=== PATIENT | female | born 1935 | race Caucasian/White ===

== ENCOUNTER 2019-10-13 13:15 | Observation (INO) | payer MEDICARE, OTHER, SELFPAY ==
[2019-10-08 11:25] VITALS: BMI 28.3
[2019-10-08 12:27] LABS: Anion Gap 15.3 (5-19); Blood Urea Nitrogen 14 mg/dL (8-23); Calcium 9.7 mg/Dl (8.8-10.2); Carbon Dioxide 22 mmol/L (22-29); Chloride 103 mmol/L (98-107); Glucose 113 mg/dL (74-106); Potassium 4.3 mmol/L (3.5-5.1); Sodium 136 mmol/L (136-145)
[2019-10-08 12:54] LABS: Basophils % 0.6 %; Eosinophils # 0.2 10^3/uL (0.0-0.8); Eosinophils % 2.8 %; Hematocrit 42.7 % (37.0-47.0); Hemoglobin 13.8 g/dL (11.5-15.3); Lymphocytes # 1.4 10^3/uL (0.8-4.8); Lymphocytes % 26.2 %; Mean Corpuscular HGB Conc 32.3 g/dL (30.0-36.0); Mean Corpuscular Hemoglobin 29.6 pg (28.0-34.0); Mean Corpuscular Volume 91.4 fL (81-99); Mean Platelet Volume 11.5 fL (7.4-10.4); Monocytes # 0.9 10^3/uL (0.2-0.9); Monocytes % 17.1 %; Neutrophils # 2.8 10^3/uL (1.8-7.7); Neutrophils % 52.9 %; Nucleated Red Blood Cells % 0 %; Platelet Count 210 10^3/cmm (130-400); Red Blood Count 4.67 10^6/uL (4.1-5.3); Red Cell Distribution Width 14.8 % (12.1-15.1); White Blood Count 5.3 10^3/uL (4.0-10.0)
[2019-10-08 13:24] LABS: Urine Appearance Clear (CLEAR); Urine Color Yellow (Yellow)
[2019-10-08 13:25] LABS: Add Urine Microscopic? YES; Bilirubin Urine Neg (NEGATIVE); Blood Urine Trace (Negative); Glucose Urine UA Norm (Normal); Ketones Urine Negative (Negative); Leukocyte Esterase Urine Negative (Negative); Nitrate Urine Negative (Negative); Protein Urine Neg (Negative); Urobilinogen Urine Norm (Negative); pH Urine 6 (5-7)
[2019-10-08 13:27] LABS: Add Urine Culture? No; Bacteria Urine TRACE; RBC Urine 0-4 /hpf (0-2); Squamous Epithelial Cell Urine 0-4 (0-5); WBC Urine 0-4 /hpf (0-5)
[2019-10-13] VITALS (21 sets, daily range): BP systolic 99–152; BP diastolic 53–85; PULSE 73–94; RESP 12–18; TEMP 36.2–36.8; O2SAT 93–99
[2019-10-13] MEDS: phenazopyridine 100 mg Tablet 200 MG PO (08:45)
[2019-10-13] MEDS: sodium chloride 0.9% 1,000 ML 30 ML IV (08:45)
--- NOTE | 2019-10-13 09:01 | ANES.PREANES ---
Pre-Anesthetic Assessment Pre-Anesthetic Assessment: Height/Weight: Height 1.55 m Weight 68.039 kg Temp Pulse Resp BP Pulse Ox 97.1 F L 85 18 152/85 95 10/13/19 08:31 10/13/19 08:31 10/13/19 08:31 10/13/19 08:31 10/13/19 08:31 Preop Diagnosis: Incomplete uterovaginal prolapse, Urinary incontinence Proposed Procedure: Operation Date: 10/13/19 09:15 Proposed Procedures p Total Vaginal Hysterectomy(Not Applicable) - Jose Enrique Conde MD s Salpingo-Oophorectomy (Vaginal)(Bilateral) - Jose Enrique Conde MD s Anterior Repair(Not Applicable) - MD brayan Everett Posterior Repair(Not Applicable) - Jose Enrique Conde MD Familial anesthetic complications: Trouble waking up Was Beta Di taken within 24 hours: N/A Last intake: Intake Last Liquid Date 10/12/19 Last Liquid Time 23:00 Last Solid Date 10/12/19 Last Solid Time 20:00 Social: Social History: No alcohol and No tobacco Exam: Pre-Anes Outpt Exam: alert, oriented x 3, clear to auscultation bilaterally and regular rate & rhythm Additional Exam Findings (including area of procedure): afib Airway: Cervical ROM: WNL MP: 2 Dentition: False Pulmonary: Pulmonary: None reported Comments: Hx of bronchitis - not in a couple of years CV/HEM: CV/HEM: Afib, CHF and HTN : : None reported Hepatic: Hepatic: None reported GI: GI: GERD Metabolic: Metabolic: None reported Musc/skel: Musc/skel: Lower Back Pain Comments: multiple myeloma Neuropsych: Neuropsych: None reported Anesthetic Plan: ASA status: III Anesthesia: General Risk of > 500 ml blood loss (7ml/kg in children): No Meds/Allergies Current Medications: Current Medications Generic Name Dose Route Start Last Admin Trade Name Freq PRN Reason Stop Dose Admin Sodium Chloride 1,000 mls @ 30 ml s/hr 10/13/19 08:15 10/13/19 08:45 Sodium Chloride 0.9% IV 10/14/19 08:14 30 mls/hr .Q24H DINH Administration PFSH Anesthesia PFSH: Social History Smoking and tobacco status: never smoked Alcohol intake: never Additional social history: Well balanced diet Data Anesthesia CBC & Chem 7: 10/08/19 10:44 10/08/19 10:44 Cardiac Studies: No Data to Display
--- NOTE | 2019-10-13 10:43 | PM.HPUD ---
H&P update H&P Update: DATE OF SURGERY/PROCEDURE: 10/13/19 DATE H&P PERFORMED: 10/08/19 H&P UPDATE INFORMATION: H&P completed within last 30 days, No changes to prior documentation and H&P is in [facility] on date indicated PREOP DIAGNOSIS: Incomplete uterovaginal prolapse PLANNED PROCEDURE: Operation Date: 10/13/19 09:15 Proposed Procedures p Total Vaginal Hysterectomy(Not Applicable) - Jose Enrique Conde MD s Salpingo-Oophorectomy (Vaginal)(Bilateral) - Jose Enrique Conde MD s Anterior Repair(Not Applicable) - MD brayan Everett Posterior Repair(Not Applicable) - Jose Enrique Conde MD Full H&P Medications/Allergies: Current Medications: Current Medications Generic Name Dose Route Start Last Admin Trade Name Freq PRN Reason Stop Dose Admin Sodium Chloride 1,000 mls @ 30 ml s/hr 10/13/19 08:15 10/13/19 08:45 Sodium Chloride 0.9% IV 10/14/19 08:14 30 mls/hr .Q24H DINH Administration Perinent History: Medical/Surgical History: Medical History (Updated 10/11/19 @ 18:24 by Jose Enrique Conde MD) GERD (gastroesophageal reflux disease) (Acute) Heart disease (Acute) Hyperlipidemia (Acute) Hypertension (Acute) Multiple myeloma (Acute) Osteoporosis (Acute) Family History: Family History (Updated 10/11/19 @ 17:56 by Jose Enrique Conde MD) Mother Hypertension Hyperlipidemia Stroke Father Hypertension Sister Hypertension Diabetes Hyperlipidemia Unknown Heart disease Multiple family members Social History: Social History Smoking and tobacco status: never smoked Alcohol intake: never Additional social history: Well balanced diet
--- NOTE | 2019-10-13 11:25 | SUR.OPER ---
1128 family (Clementine) notified of start time and progress of surgery
[2019-10-13] MEDS: vasopressin 20 unit/mL INJ INJECTION (11:30)
[2019-10-13] MEDS: fentaNYL 50 mcg/mL INJ 2mL IVP ×2 (13:17→13:22)
--- NOTE | 2019-10-13 13:49 | PM.OP ---
Operative Report Date of procedure: 10/13/19 Preop Diagnosis: Incomplete uterovaginal prolapse Post-op diagnosis: other (Complete uterovaginal prolapse) Procedure Done: Colpocleisis, Suprapubic catheter insertion with cystoscopy Specimens removed/disposition: None Surgeon: Jose Enrique Conde Anesthesia: general Estimated blood loss (mL): 20 Complications: None Condition: stable Procedure: DATE OF SURGERY: 10/13/2019 DATE OF DICTATION: 10/13/2019 TIME OF DICTATION: 13: 50 PREOPERATIVE DIAGNOSIS: Incomplete uterovaginal prolapse POSTOPERATIVE DIAGNOSIS: Complete uterovaginal prolapse PROCEDURE: Colpocleisis, Suprapubic catheter insertion with cystoscopy SURGEON: Jose Enrique Conde M.D. ACETYLENE CYLINDER PACKING MIXER: None ANESTHESIA: General INDICATIONS: Patient is a 83-year-old white female 6, para 6 who is postmenopausal. She had initially presented to the office as a referral from Dr. Nix due to rectocele. She was being managed with pessary. On my evaluation she was found to have a second-degree uterine prolapse with second-degree high cystocele and second-degree rectocele noted at her evaluation in August 2017. She opted to continue with the pessary at the time and did well with that up until 06/2019 when she developed a vaginal ulceration. Pessary then had to be left out and she started having problems with retention and worsening prolapse was noted. At her most recent exam, she was found to have at least third degree uterine prolapse, high cystocele, rectocele, and probable enterocele. Different treatment options were discussed and she wished to proceed with a closure type procedure if possible. Due to difficulty with emptying her bladder and degree of prolapse, potential for urinary retention was present and decision was made to also place suprapubic catheter due to increased chances of going home with a catheter. PROCEDURE: Patient was taken to the operating room where general anesthesia was obtained. She was prepped and draped in usual sterile fashion dorsal supine position with legs in Emile style stirrups. Sequential compression boots had been placed prior to starting the case. Bernal catheter was inserted and exam under anesthesia was performed. She had fourth degree uterine prolapse noted with almost complete eversion of the vagina present. The tissue surrounding the cervix was marked and then the channels along the sides of the vagina were then marked. The anterior and posterior portions of the vagina were injected with dilute Pitressin solution. The anterior vaginal wall was then undermined and the skin removed up to approximately the urethrovesical junction. Posteriorly, the skin was undermined and the skin removed up to approximately two thirds of the length of the posterior vaginal wall. Using 2-0 Vicryl suture, interrupted stitches were placed at the remaining scan at the cervix creating a open pocket behind the closed skin edge. This was then carried along the sides with the skin being rolled creating a track along the sides of the vagina bilaterally. This allowed a passage for uterine secretions to drain. Pursestring stitch was then placed through the paravaginal tissue and the apex of the vagina tucked down as the suture was tied. Multiple stitches were placed in this fashion until the uterus and vagina were back into position. Care was taken not to incorporate the tracks along the side of the vagina. The perineum was then injected with dilute Pitressin solution. A wedge-shaped piece of skin was excised from the perineum. The remaining portion of the posterior vaginal wall was injected with dilute Pitressin solution. The skin was undermined and then opened in the midline and the skin dissected off of the remaining portion of the rectovaginal fascia. This was then further sewn to the tissue along the anterior wall until only approximately 1 cm depth of the vagina remained. The remaining portion of the posterior wall was then also plicated in the midline, further reducing caliber of the remaining portion of the vagina. Excess skin was then excised. The skin of the vagina was reapproximated in the midline using 3-0 Vicryl suture in a running locking fashion. The perineal body was further built up with interrupted stitches of 2-0 Vicryl suture. The superficial portion of the perineum was reapproximated using 3-0 Vicryl suture in a running fashion and the skin of the perineum reapproximated using 3-0 Vicryl suture in a subcuticular fashion. Bernal catheter was removed and cystoscopy performed. Both ureters were noted to be effluxing urine well. No bladder masses were noted. Significant trabeculations were noted within the bladder. The bladder was distended with approximately 500 mL of fluid. Proximal 1 cm above the pubic symphysis in the midline, skin incision was made with a knife and a trocar from a suprapubic catheter kit was passed through the suprapubic incision and directed into the anterior bladder. This was done under cystoscopic guidance. Catheter was passed through the trocar over a stylette and the trocar was then removed. The catheter was inflated and the stylette removed. The catheter was secured to the anterior abdominal wall. Bladder was then drained and Bernal catheter reinserted. Patient tolerated procedure well. Sponge needle and instrument counts were correct. ESTIMATED BLOOD LOSS: 20 mL INTRAVENOUS FLUIDS: See anesthesia record DRAINS: Bernal and suprapubic catheters SPECIMENS: None COMPLICATIONS: None FINDINGS: Complete uterovaginal prolapse POSTOPERATIVE STATUS: The patient was transferred to the recovery room in satisfactory condition.
--- NOTE | 2019-10-13 14:51 | PM.PACU ---
PACU note Post-Anesthesia Exam: awake and vital signs stable Disposition: back to floor
[2019-10-13] MEDS: acetaminophen 325 mg Tablet 650 MG PO (15:28)
[2019-10-13] MEDS: dextrose 5%-sod chloride 0.45% 1,000 ML 125 ML IV (18:13)
[2019-10-13] MEDS: HYDROcodone-acetaminophen 5-325 mg Tablet 1 TAB PO (18:19)
--- NOTE | 2019-10-13 21:04 | PC.NURSE ---
Patient was up to chair and started feeling nauseous and light headed. She had her daughter push the call light to help get her back to bed. The patient had originally planned on walking before going back to bed, but felt she would be unable to tonight. V/S were taken and within normal limits. She is now resting comfortably in bed and her nausea has subsided.
[2019-10-14] MEDS: dextrose 5%-sod chloride 0.45% 1,000 ML 125 ML IV (01:38)
[2019-10-14] MEDS: diphenhydrAMINE 50 mg/mL SDV 1mL 12.5 MG IVP (02:40)
[2019-10-14 04:19] LABS: Basophils % 0.2 %; Eosinophils % 0.6 %; Hematocrit 34.8 % (37.0-47.0); Hemoglobin 11.3 g/dL (11.5-15.3); Lymphocytes # 0.8 10^3/uL (0.8-4.8); Lymphocytes % 17.1 %; Mean Corpuscular HGB Conc 32.5 g/dL (30.0-36.0); Mean Corpuscular Volume 89.2 fL (81-99); Mean Platelet Volume 10.7 fL (7.4-10.4); Monocytes % 21.3 %; Neutrophils # 2.9 10^3/uL (1.8-7.7); Neutrophils % 60.6 %; Nucleated Red Blood Cells % 0 %; Platelet Count 197 10^3/cmm (130-400); Red Cell Distribution Width 14.9 % (12.1-15.1); White Blood Count 4.8 10^3/uL (4.0-10.0)
[2019-10-14 04:30] VITALS: BP 138/74; PULSE 69; RESP 15; TEMP 36.8; O2SAT 95
[2019-10-14] MEDS: HYDROcodone-acetaminophen 5-325 mg Tablet 1 TAB PO ×2 (07:08→15:38)
--- NOTE | 2019-10-14 08:23 | PM.PN ---
Subjective Subjective: Interval history: Denies complaints. Reports pain has been well controlled. Denies shortness of breath or chest pains. Denies lightheadedness or dizziness with ambulation. Reports tolerating clear liquids without nausea or vomiting. Reports passing flatus. Reports having only minimal spotting vaginally. Denies any leg pains. Vitals/I&O/Wt Last Vital Signs Temp 98.2 F 10/14/19 04:30 Pulse 69 10/14/19 04:30 Resp 15 10/14/19 04:30 BP 138/74 10/14/19 04:30 Pulse Ox 95 10/14/19 04:30 10/13/19 10/14/19 10/14/19 22:59 06:59 14:59 Intake Total 970.833 / 1020.833 656.25 / 1677.083 Output Total 875 / 1500 800 / 2300 Balance 95.833 / -479.167 -143.75 / -622.917 Physical Exam Const: COMMON NORMALS: no apparent distress, average body habitus, alert and well nourished GENERAL APPEARANCE: well developed ORIENTATION/CONSCIOUSNESS: Yes oriented to person, Yes oriented to place and Yes oriented to time Resp: COMMON NORMALS: normal respiratory effort and clear to auscultation bilaterally AUSCULTATION: clear to auscultation bilaterally Cardio: COMMON NORMALS: regular rate, regular rhythm, no gallops, no murmurs and no rub RATE: regular rate RHYTHM: regular rhythm GI: COMMON NORMALS: soft to palpation, non-tender, no hepatosplenomegaly and no masses AUSCULTATION: Yes normoactive bowel sounds PALPATION: Yes soft, Yes no hepatosplenomegaly and No hernia : EXTERNAL FEMALE EXAM: No hernia Neuro: SENSORIUM/ORIENTATION: Yes alert, Yes oriented to person, Yes oriented to place and Yes oriented to time Psych: COMMON NORMALS: affect normal MOOD & AFFECT: Yes euthymic mood Urinary Catheter Management^: Bernal: Cath Placed During This Visit: no Suprapubic: Cath Placed During This Visit: no A&P Assessment and plan (1) Complete uterovaginal prolapse: Postoperative day 1, status post vaginal colpocleisis Patient is doing well overall. Advance to regular diet. Increase activities. May shower. Discontinue Bernal catheter. Leave suprapubic catheter for now. Patient to start voiding trials this morning. Patient has required minimal pain medication at this time. Plan is for her to go home later on today. Decision as to whether she goes home with the suprapubic catheter will depend upon results of voiding trials. Discharge instructions were reviewed with her and her daughter. Status: Acute Code(s): N81.3 - Complete uterovaginal prolapse (2) Hypertension: Patient is being restarted on her usual home blood pressure medicines this morning. This is amlodipine 5 mg daily and losartan 25 mg daily. Status: Acute Qualifiers: Hypertension type: essential hypertension Qualified Code(s): I10 - Essential (primary) hypertension Code(s): I10 - Essential (primary) hypertension (3) GERD (gastroesophageal reflux disease): She is being continued on her home medication of omeprazole. Status: Acute Code(s): K21.9 - Gastro-esophageal reflux disease without esophagitis Attestations Medical Necessity Statement*: Patient will be going home today. Coding Level of Care Code Acute Adjunct English Instructor for [employer] Diagnoses Complete uterovaginal prolapse N81.3 Hypertension I10 Hypertension type: essential hypertension GERD (gastroesophageal reflux disease) K21.9
--- NOTE | 2019-10-14 08:23 | PC.NURSE ---
Patient had 100 output from butts, 300 output from suprapubic catheter.
[2019-10-14] MEDS: NON-FORMULARY MEDICATION (Fenofibrate Micronized 134 MG) 134 EACH PO (09:55)
[2019-10-14] MEDS: NON-FORMULARY MEDICATION (Losartan 100 MG) 100 EACH PO (09:56)
[2019-10-14 10:02] VITALS: BP 146/74; PULSE 73; RESP 16; TEMP 36.4; O2SAT 95
--- NOTE | 2019-10-14 10:50 | PC.NURSE ---
Post Void Residual Trial Patient voided 250. Suprapubic catheter unclamped at that time. 20 minutes later, suprapubic catheter emptied with 100 output and then camped again. Patient instructed to attempt to void again in 2 hours at approximately 1245 and notify nurse.
--- NOTE | 2019-10-14 12:55 | PC.NURSE ---
Catheter Output Patient reported attempting to void but noticed her suprapubic catheter was full of urine and she was unable to void. She notified this nurse and bag was emptied with 500 output. This nurse notified Dr. Conde and received order for additional voiding trial. Call with results.
--- NOTE | 2019-10-14 14:05 | PC.NURSE ---
Catheter Output After unclamping suprapubic catheter for 10 minutes, less than 15ml was measured in a specimen cup following patient voiding 500ml herself. Dr. Conde notified and order received to remove suprapubic catheter.
[2019-10-14 14:46] VITALS: BP 134/76; PULSE 78; RESP 15; TEMP 36.6; O2SAT 93
--- NOTE | 2019-10-14 15:09 | PM.DCS ---
Discharge Providers Date of Admission: 10/13/19 13:15 Date of Discharge: 10/29/19 Attending Provider at Admission: Jose Enrique Conde Attending Provider at Discharge: Jose Enrique Conde Primary Care Provider: Adriana Gramajo DO Diagnoses at Discharge Discharge Diagnosis (1) Complete uterovaginal prolapse: Status: Acute (2) Hypertension: Status: Acute Qualifiers: Hypertension type: essential hypertension Qualified Code(s): I10 - Essential (primary) hypertension (3) GERD (gastroesophageal reflux disease): Status: Acute Reason for Visit Reason for Visit: Reason For Visit: Uterovaginal prolapse N81.2, Urinary incontinence Hospital Course Hospital Course: Patient is an 83-year-old white female 6, para 6 who is postmenopausal. She had presented to the office as a referral from Dr. Nix due to a rectocele. She had been previously managed with a pessary. On my evaluation she was found to have a second-degree uterine prolapse with second-degree high cystocele and a second-degree rectocele noted at the evaluation in August 2017. She had opted to continue with a pessary which she did well with up until 06/2019 when she developed a vaginal ulceration. Since then she has had to have the pessary out trying to get the ulceration to heal. With the pessary out she has developed problems with worsening retention and worsening prolapse. Things have now progressed to at least third degree uterine prolapse with high cystocele and rectocele and probable enterocele. Treatment options were discussed with her and she decided to proceed to surgical treatment by way of a colpocleisis. Due to her degree of prolapse she was also to have a suprapubic catheter due to increased risk of urinary retention following surgery. Patient was brought to the hospital for same-day surgery and had a colpocleisis with suprapubic catheter insertion. She tolerated the surgery well. On postoperative day 1 she was doing well overall. Her pain has been well controlled on oral medications. She denied shortness of breath or chest pains. She denied lightheadedness or dizziness with ambulation. She was tolerating clear liquids without nausea or vomiting. She had started passing flatus. She had had minimal spotting vaginally. She was afebrile with stable vital signs. Her diet was advanced and her activities were increased. She tolerated a regular diet without difficulty later on in the day. Voiding trials were started. She had low post void residuals after adequate voided volumes. As a result suprapubic catheter was removed and then she was discharged home. She was to follow-up in the office at her scheduled to in 6-week appointments. Discharge Data Data Completed and Pending: Labs from last 24 hours 10/14/19 04:00 WBC 4.8 RBC 3.90 L Hgb 11.3 L Hct 34.8 L MCV 89.2 MCH 29.0 MCHC 32.5 RDW 14.9 Plt Count 197 MPV 10.7 H Neut % (Auto) 60.6 Lymph % (Auto) 17.1 Kings % (Auto) 21.3 Eos % (Auto) 0.6 Baso % (Auto) 0.2 Neut # (Auto) 2.9 Lymph # (Auto) 0.8 Kings # (Auto) 1.0 H Eos # (Auto) 0.0 Baso # (Auto) 0.0 Nucleated RBC % (a uto) 0 Nucleated RBCs # 0.0 Vitals: Last Vital Signs Temp 97.8 F 10/14/19 14:46 Pulse 78 10/14/19 14:46 Resp 15 10/14/19 14:46 BP 134/76 10/14/19 14:46 Pulse Ox 93 10/14/19 14:46 Discharge Plan Discharge Patient Disposition: Home, Self-Care Condition: Stable Prescriptions: New hydrocodone-acetaminophen 5-325 mg Tablet 1 tab PO Q4H PRN (Reason: Moderate Pain) Qty: 20 RF: 0 Continued amlodipine 5 mg tablet 5 mg PO DAILY RF: 0 [id number] 500-400-667 mg-mg-unit capsule 1 cap PO DAILY RF: 0 losartan 25 mg tablet 100 mg PO DAILY RF: 0 calcium carbonate 600 mg calcium (1,500 mg) tablet 600 mg PO DAILY RF: 0 ascorbic acid (vitamin C) 500 mg tablet extended release 500 mg PO DAILY RF: 0 zinc 50 mg tablet 50 mg PO DAILY RF: 0 aspirin 325 mg tablet 325 mg PO DAILY RF: 0 potassium gluconate 595 mg (99 mg) tablet 595 mg PO DAILY RF: 0 Revlimid 10 mg capsule 10 mg PO DAILY RF: 0 dexamethasone 4 mg tablet 20 mg PO .weekly RF: 0 cholecalciferol (vitamin D3) [Vitamin D3] 1,000 unit capsule 1,000 unit PO ONCE RF: 0 acetaminophen [Tylenol Extra Strength] 500 mg tablet 1,000 mg PO Q6H PRN (Reason: Cold Symptoms) RF: 0 furosemide 20 mg tablet 30 mg PO DAILY RF: 0 fluticasone propionate 50 mcg/actuation spray,suspension 1 spray INTRANASAL BID PRN (Reason: Allergy Symptoms) RF: 0 fenofibrate micronized 134 mg capsule 134 mg PO DAILY RF: 0 omeprazole magnesium 20 mg capsule,delayed release(DR/EC) 20 mg PO DAILY RF: 0 nitroglycerin [Nitrostat] 0.4 mg tablet, sublingual 0.4 mg SUBLINGUAL Q5M PRN (Reason: Chest Pain) RF: 0 Held estradiol [Estrace] 0.01 % (0.1 mg/gram) cream 0.5 gm VAGINAL .twice weekly RF: 0 Hold Instructions: Resume on 10/30/19. Do not restart until after your next appointment in the office Discharge Orders: Discharge Order (Routine); Ordered 10/14/19 Ordered By: Jose Enrique Conde Referrals: Jose Enrique Conde MD [Physician] - 10/29/19 9:45 am (Postoperative visit) Discharge Diet: Regular Discharge Activity: Limit activity as instructed Patient Instructions: OB Discharge Report Discharge Date/Time: 10/14/19 16:10 Discharge Attestations Time Spent in Discharge Care*: less than 30 min Quality Metrics Clinical Quality Measures During this hospital stay, did patient experience: None Coding Level of Care Code Acute Litigation Attorney Associate for [employer] Diagnoses Complete uterovaginal prolapse N81.3 Hypertension I10 Hypertension type: essential hypertension GERD (gastroesophageal reflux disease) K21.9
== END 2019-10-14 16:10 | disposition home or self-care (01) ==
LOC: OBGYN 13:26
PROVIDERS: Admitting Provider Obstetrics & Gynecology; Family Provider Family Medicine; PCP Family Medicine; Visit Provider Obstetrics & Gynecology
PROC: (CPT 57120; 2019-10-13 09:05)
PROC: (CPT 51102; 2019-10-13 09:05)
PROC: 0TJB8ZZ Inspection of Bladder, Via Natural or Artificial Opening Endoscopic (ICD-10-PCS; CPT 52000; 2019-10-13 09:05)
DX: N81.3 Complete uterovaginal prolapse (principal); N39.41 Urge incontinence; K21.9 Gastro-esophageal reflux disease without esophagitis; M81.0 Age-related osteoporosis without current pathological fracture; Z82.49 Family history of ischemic heart disease and other diseases of the circulatory system; Z83.3 Family history of diabetes mellitus; I48.91 Unspecified atrial fibrillation; I11.0 Hypertensive heart disease with heart failure; I50.9 Heart failure, unspecified
CPT/HCPCS: 51102; 57120; 12345; 36415; 80048; 81003; 85025; 96360; 96361; 96375; G0378; J0690; J1200; J2001; J2704; J3010; J3490; J7030; J7799

== ENCOUNTER 2020-08-24 11:02 | Outpatient (CLI) | payer MEDICARE, OTHER, SELFPAY ==
--- NOTE | 2020-08-24 11:17 | USCV_ITS ---
Childers Cristy Age: 84 Gender: F : 1935 Exam Date: 08/24/2020 11:34 Ordering Phys: Adriana Gramajo DO Technologist: Karen Silverman Exam Location: [facility] Indication: SWELLING HISTORY: Lower extremity swelling. PROCEDURES: Venous duplex imaging was performed in only the left lower extremity. The following venous structures were evaluated: common femoral vein, profunda vein, proximal portion of the greater saphenous vein, superficial femoral vein, and the popliteal vein. In addition, the posterior tibial and peroneal trunk were evaluated. Serial compression, augmentation maneuvers, and spectral Doppler flow evaluation were performed. FINDINGS: Acute occlusive deep vein thrombosis in the left common femoral vein extending through the popliteal vein and peroneal trunk with abnormal flow dynamics. CONCLUSIONS Acute left lower extremity deep venous thrombosis. Patient taken to the ED for evaluation. Dr. Aster Escudero DO (Electronically Signed) Final Date: 24 August 2020 12:13 S
== END 2020-08-24 11:03 | disposition home or self-care (01) ==
LOC: RAD 11:06
PROVIDERS: PCP Family Medicine; Visit Provider Family Medicine
DX: M79.605 Pain in left leg (principal); M79.89 Other specified soft tissue disorders; I82.402 Acute embolism and thrombosis of unspecified deep veins of left lower extremity
CPT/HCPCS: 93971

== ENCOUNTER 2020-08-24 11:54 | Emergency (ER) | payer MEDICARE, OTHER, SELFPAY ==
[2020-08-24 12:11] VITALS: BP 95/50; PULSE 90; RESP 20; TEMP 36.4; O2SAT 96; BMI 28.3
--- NOTE | 2020-08-24 14:06 | PC.NURSE ---
Pt in WR with family at side. No needs at this time
--- NOTE | 2020-08-24 14:25 | PC.NURSE ---
Pt placed in room 12
[2020-08-24 15:13] VITALS: BP 134/65
[2020-08-24] MEDS: enoxaparin 80 mg/0.8 mL Syringe 70 MG SUBCUT (15:23)
--- NOTE | 2020-08-24 15:31 | W.ED.EXTPRO ---
HPI - Extremity Problem General: Chief complaint: Extremity Problem,Nontraumatic Stated complaint: BLOOD CLOT Time Seen by Provider: 08/24/20 13:49 History of Present Illness: HPI Narrative: 84-year-old female comes in complaining of swelling and pain in her left lower leg for the last 3 days. She was seen by primary care and sent for a venous duplex. Venous duplex is positive for a DVT on the left side. Recently she has been immobilized more due to compression fractures in her back. Patient has a history of multiple myeloma as well. She has some baseline shortness of breath with exertion which has not changed. MD Complaint: extremity pain (Left lower leg) and extremity swelling Onset (ago): day(s) Pain Consistency: constant Location: left Quality: aching Radiation: none Relieving factors: nothing Exacerbating factors: nothing Associated symptoms: Deny arthralgias, chest pain, fever(s), myalgias, rash or short of breath Review of Systems Const: Denies: fever(s) ENMT: Denies: throat pain, ear or mastoid pain, nasal discharge or nasal congestion Card: Denies: chest pain Resp: Denies: dyspnea, productive cough or non-productive cough GI: Denies: abdominal pain, nausea, vomiting, hematemesis, coffee ground emesis, diarrhea, constipation, bloating, hematochezia or melena : Denies: flank pain, difficulty voiding, dysuria, urinary frequency or urinary urgency Skin/Breast: Denies: rash PFSH ED PFSH: Medical History GERD (gastroesophageal reflux disease) Heart disease Hyperlipidemia Hypertension Multiple myeloma Osteoporosis Surgical History History of vaginal surgery (10/13/19) Colpocleisis with uterus in place. Performed by Dr. Conde at [facility] [place]. S/P tonsillectomy and adenoidectomy Performed in [place], [place] S/P tubal ligation Performed at [facility] and [place], [place] Family History Mother Hypertension Hyperlipidemia Stroke Father Hypertension Sister Hypertension Diabetes Hyperlipidemia Unknown Heart disease Multiple family members Social History (Reviewed 11/25/20 @ 16:30 by JOHANA Fuentes Smoking and tobacco status: never smoked Alcohol intake: never Additional social history: Well balanced diet Physical Exam Const: COMMON NORMALS: no acute distress GENERAL APPEARANCE: cooperative and comfortable ORIENTATION/CONSCIOUSNESS: Yes awake, Yes oriented to person, Yes oriented to place and Yes oriented to time HENMT: COMMON NORMALS: normocephalic, atraumatic and hearing grossly normal bilaterally HEAD & SCALP: normocephalic and atraumatic Eye: COMMON NORMALS: Equal, round and reactive pupils present, EOMs intact bilaterally, conjunctivae normal and no scleral icterus CONJUNCTIVA: Yes conjunctivae normal PUPIL: Yes Equal, round and reactive pupils present Neck/C-Spine: COMMON NORMALS: full ROM, no lymphadenopathy, supple and no JVD Lymph: LYMPHATIC: no lymphadenopathy noted and no lymphedema noted Resp: COMMON NORMALS: normal respiratory effort, No retractions, No use of accessory muscles and clear to auscultation bilaterally AUSCULTATION: clear to auscultation bilaterally Cardio: COMMON NORMALS: no JVD, regular rate, regular rhythm and No murmurs present (Cardio) RATE: regular rate RHYTHM: regular rhythm GI: COMMON NORMALS: Soft to palpation and No hepatosplenomegaly present AUSCULTATION: Yes normoactive bowel sounds PALPATION: Yes Soft to palpation, No Tenderness to palpation present (GI), No Guarding due to palpation present (GI) and Yes No hepatosplenomegaly present Extremity: NARRATIVE EXTREMITY EXAM: 2+ edema left lower extremity Neuro: SENSORIUM/ORIENTATION: Yes oriented to person, Yes oriented to place and Yes oriented to time Skin: COMMON NORMALS: no rashes or lesions noted GENERAL SKIN EXAM: no rashes or lesions noted Course Vital Signs: Vital signs: Vital Signs Temperature 97.5 F L 08/24/20 12:11 Pulse Rate 67 08/24/20 16:12 Respiratory Rate 16 08/24/20 16:12 Blood Pressure 132/35 08/24/20 16:12 Pulse Oximetry 94 08/24/20 16:12 MDM - Extremity (Nontraumatic) MDM Narrative: Medical decision making narrative: Initially were concerned based on Eliquis however she is already been started on Xarelto. She was given a dose of Lovenox. Discussed with her the finding of the DVT we will have her follow-up with oncology and primary care return if she has chest pain or increased shortness of breath. Discharge Plan Discharge Patient Disposition: Home Clinical Impression: Deep vein thrombosis of lower extremity Condition: Stable Prescriptions: No Action amlodipine 5 mg tablet 5 mg PO DAILY RF: 0 calcium carbonate 600 mg calcium (1,500 mg) tablet 600 mg PO DAILY RF: 0 zinc 50 mg tablet 50 mg PO DAILY RF: 0 aspirin 325 mg tablet 325 mg PO DAILY RF: 0 potassium gluconate 595 mg (99 mg) tablet 595 mg PO DAILY RF: 0 Revlimid 10 mg capsule 10 mg PO .DAILY DIRECTED RF: 0 dexamethasone 4 mg tablet 20 mg PO .weekly RF: 0 cholecalciferol (vitamin D3) [Vitamin D3] 1,000 unit capsule 1,000 unit PO DAILY RF: 0 acetaminophen [Tylenol Extra Strength] 500 mg tablet 1,000 mg PO PRN RF: 0 furosemide 20 mg tablet 20 mg PO DAILY PRN (Reason: Edema) RF: 0 fluticasone propionate 50 mcg/actuation spray,suspension 1 spray INTRANASAL BID PRN (Reason: Allergy Symptoms) RF: 0 fenofibrate micronized 134 mg capsule 134 mg PO DAILY RF: 0 omeprazole magnesium 20 mg capsule,delayed release(DR/EC) 20 mg PO DAILY RF: 0 nitroglycerin [Nitrostat] 0.4 mg tablet, sublingual 0.4 mg SUBLINGUAL Q5M PRN (Reason: Chest Pain) RF: 0 Vitamin C 500 mg Tablet 500 mg PO DAILY RF: 0 Miralax 17 gram/dose Powder 17 g PO DAILY PRN (Reason: Constipation) RF: 0 losartan 100 mg tablet 100 mg PO DAILY RF: 0 Xarelto 15 mg Tablet 15 mg PO BID RF: 0 Percocet 10-325 mg Tablet 1 tab PO Q4H MDD 6 TABS PRN (Reason: Pain) RF: 0 calcitonin (salmon) 200 unit/actuation spray,non-aerosol See Rx Instructions .ROUTE .COMPLEX RF: 0 Linzess 72 mcg capsule 72 mcg PO QAM RF: 0 Discharge Orders: Discharge Order (Routine); Ordered 08/24/20 Ordered By: Kana Werner Referrals: Adriana Gramajo DO [Primary Care Provider] - Discharge Diet: Usual diet Discharge Activity: Limit activity as instructed Activity Restrictions/Additional Instructions: Aloe up with your primary care doctor and your oncologist as previously scheduled. Coding Level of Care Code ED [employer] Helper for Cheyenne Norwood
[2020-08-24 16:12] VITALS: BP 132/35; PULSE 67; RESP 16; O2SAT 94
== END 2020-08-24 16:17 | disposition home or self-care (01) ==
PROVIDERS: Emergency Provider Family Medicine; PCP Family Medicine
DX: I82.402 Acute embolism and thrombosis of unspecified deep veins of left lower extremity (principal); Z79.82 Long term (current) use of aspirin; I10 Essential (primary) hypertension; E78.5 Hyperlipidemia, unspecified; M79.89 Other specified soft tissue disorders; M79.605 Pain in left leg
CPT/HCPCS: 12345; 93971; 96372; 99281; 99283; J1650

== ENCOUNTER 2021-06-12 10:51 | Outpatient (CLI) | payer MEDICARE, OTHER, SELFPAY ==
--- NOTE | 2021-06-12 11:02 | MM_ITS ---
WS: [id number] BILATERAL SCREENING DIGITAL MAMMOGRAM WITH CAD HISTORY: SCREENING COMPARISON: 06/18/2019 and 06/03/2018 Bilateral CC and MLO views submitted. Computer aided detection analyzed. Breast composition: There are scattered areas of fibroglandular density. No suspicious masses, microc alcifications or architectural distortion. Extensive bilateral breast arterial calcifications. MM/[place] [id number] IMPRESSION: BI-RADS: 2-Benign FOLLOW UP: 1 Year Follow-up
== END 2021-06-12 10:52 | disposition home or self-care (01) ==
PROVIDERS: PCP Family Medicine; Visit Provider Family Medicine
DX: Z12.31 Encounter for screening mammogram for malignant neoplasm of breast (principal)
CPT/HCPCS: 77067

== ENCOUNTER 2023-03-11 20:20 | Emergency (ER) | payer MEDICARE, OTHER, SELFPAY ==
[2023-03-11 20:21] VITALS: BMI 20.7
[2023-03-11 20:23] VITALS: BP 100/78; PULSE 109; RESP 16; TEMP 36.7; O2SAT 97
--- NOTE | 2023-03-11 20:26 | CTR_ITS ---
PROCEDURE INFORMATION: Exam: CT Head Without Contrast Exam date and time: 03/11/2023 8:36 PM Age: 87 years old Clinical indication: Injury or trauma; Fall; Blunt trauma (contusions or hematomas) TECHNIQUE: Imaging protocol: Computed tomography of the head without contrast. Radiation optimization: All CT scans at this facility use at least one of these dose optimization techniques: automated exposure control; mA and/or kV adjustment per patient size (includes targeted exams where dose is matched to clinical indication); or iterative reconstruction. REPORTING DATA: Count of CT and Cardiac NM exams in prior 12 months: This patient has received 0 known CTs and 0 known cardiac nuclear medicine studies in the 12 months prior to the current study. COMPARISON: No relevant prior studies available. RADIATION DOSE METRICS: Total DLP (mGy-cm): 954.08 FINDINGS: Brain: No acute intra- or extra axial fluid collections are identified. The basal cisterns are patent. No mass effect or midline shift is seen. The argueta-white matter differentiation is normal. Periventricular hypoattenuation are nonspecific but likely the sequela of chronic small vessel ischemic disease. Cerebral ventricles: The ventricles are of normal size, shape, and morphology. Paranasal sinuses: There is mild paranasal sinus disease. No air-fluid levels. Mastoid air cells: The mastoid air cells appear grossly clear. Orbital cavities: The patient is status post cataract extraction.. Bones/joints: No acute calvarial fracture is identified. Soft tissues: There is mild right periorbital soft tissue swelling/hematoma extending along the supra orbital forehead/frontal scalp. No underlying osseous fractures. Vasculature: There are atherosclerotic calcifications of the carotid siphons and the V4 segments of the vertebral arteries. CT/CT head wo con* [id number] IMPRESSION: 1. No evidence of acute intracranial hemorrhage, significant mass effect, or midline shift. 2. Right frontal/forehead soft tissue swelling/hematoma and right periorbital soft tissue swelling as outlined.
--- NOTE | 2023-03-11 20:32 | ED_ITS ---
HPI - Fall General: Chief Complaint: Fall Stated Complaint: fall Time Seen by Provider: 03/11/23 20:22 Source: patient and EMS Mode of arrival: EMS Limitations: no limitations History of Present Illness: 87-year-old female states she was walking her walker tripped and fell into the wall she did hit her head this happened this morning she is on Eliquis she has a hematoma to right forehead she also skin tears to right arm she has a mild headache she denies any pain elsewhere denies any chest or abdominal or hip pain. Associated symptoms-after fall: Reports headache(s); Denies abdominal pain, chest pain or neck pain Review of Systems Const: Denies: fever(s), chills, body aches or change in appetite ENMT: Denies: throat pain or dental pain Card: Denies: chest pain Resp: Denies: dyspnea GI: Denies: abdominal pain, nausea, vomiting or diarrhea Musc: Denies: neck pain or back pain Skin/Breast: Denies: rash Neuro: Reports: headache(s) PFSH ED PFSH: Medical History GERD (gastroesophageal reflux disease) Heart disease Hyperlipidemia Hypertension Multiple myeloma Osteoporosis Surgical History History of vaginal surgery (10/13/19) Colpocleisis with uterus in place. Performed by Dr. Conde at [facility] [place]. S/P tonsillectomy and adenoidectomy Performed in [place], [place] S/P tubal ligation Performed at [facility] and [place], [place] Family History Mother Hypertension Hyperlipidemia Stroke Father Hypertension Sister Hypertension Diabetes Hyperlipidemia Unknown Heart disease Multiple family members Social History Smoking and tobacco status: never smoked Alcohol intake: never Substance/Drug Use: never Additional social history: Well balanced diet Physical Exam Const: COMMON NORMALS: no acute distress, patient oriented x3 and healthy appearing HENMT: COMMON NORMALS: normocephalic HEAD & SCALP: normocephalic OTHER: hematoma to right forehead Eye: COMMON NORMALS: Equal, round and reactive pupils present and EOMs intact bilaterally PUPIL: Yes Equal, round and reactive pupils present Neck/C-Spine: COMMON NORMALS: full ROM and supple CERVICAL SPINE: No Cervical spine tenderness Chest: COMMONS NORMALS: normal inspection of the chest and normal palpation of entire chest wall Resp: COMMON NORMALS: normal respiratory effort, No retractions, No use of accessory muscles and clear to auscultation bilaterally AUSCULTATION: clear to auscultation bilaterally Cardio: COMMON NORMALS: regular rate, regular rhythm and No murmurs present (Cardio) RATE: regular rate RHYTHM: regular rhythm GI: COMMON NORMALS: Normal to inspection, nondistended, normoactive bowel sounds present, Soft to palpation, non-tender and no masses PALPATION: Yes Soft to palpation Back/Pelvis: COMMON NORMALS: thoracic and lumbar spine normal to inspection and no thoracic nor lumbar tenderness Extremity: COMMON NORMALS: full ROM Neuro: COMMON NORMALS: patient oriented x3, moves all extremities and no focal motor deficits Psych: COMMON NORMALS: mental status grossly normal, Normal thought process present and cooperative THOUGHT PROCESS: Normal thought process present Skin: NARRATIVE SKIN EXAM: sking tears to right forearm Course Vital Signs: Vital signs: Vital Signs Temperature 98.1 F 03/11/23 20:23 Pulse Rate 109 H 03/11/23 20:23 Respiratory Rate 16 03/11/23 20:23 Blood Pressure 100/78 03/11/23 20:23 Pulse Oximetry 97 03/11/23 20:23 Oxygen Delivery Me thod Room Air 03/11/23 20:23 MDM - Fall Medical Decision Making Patient presents here with closed head injury after a fall CT of her head is normal she does have skin tears to right arm that are not repairable we will put dressings over x-ray shows no fracture she is stable for discharge. Medical Records I reviewed the patient's medical records. Lab Data I reviewed the patient's lab results. Radiology Impressions Head CT 03/11/23 20:26 IMPRESSION: 1. No evidence of acute intracranial hemorrhage, significant mass effect, or midline shift. 2. Right frontal/forehead soft tissue swelling/hematoma and right periorbital soft tissue swelling as outlined. Forearm X-Ray 03/11/23 20:34 IMPRESSION: No evidence of acute fractures or traumatic dislocation. Discharge Plan Discharge Patient Disposition: Home Clinical Impression: CHI (closed head injury), Skin tear, Fall Condition: Stable Prescriptions: No Action amlodipine 5 mg tablet 5 mg PO DAILY calcium carbonate 600 mg calcium (1,500 mg) tablet 600 mg PO DAILY zinc 50 mg tablet 50 mg PO DAILY aspirin 325 mg tablet 325 mg PO DAILY potassium gluconate 595 mg (99 mg) tablet 595 mg PO DAILY Revlimid 10 mg capsule 10 mg PO .DAILY DIRECTED Rx Instructions: Days 1-21 each month-PT STATES SHE IS ON THE PART WHERE SHE IS NOT SUPPOSE TO BE TAKING dexamethasone 4 mg tablet 20 mg PO .weekly Rx Instructions: PT STATES SHE TAKES ON SATURDAY-AND TAKES ON - EACH MONTH-PT STATES SHE IS ON THE PART WHERE SHE IS NOT TAKING cholecalciferol (vitamin D3) [Vitamin D3] 1,000 unit capsule 1,000 unit PO DAILY acetaminophen [Tylenol Extra Strength] 500 mg tablet 1,000 mg PO PRN furosemide 20 mg tablet 20 mg PO DAILY PRN (Reason: Edema) fluticasone propionate 50 mcg/actuation spray,suspension 1 spray INTRANASAL BID PRN (Reason: Allergy Symptoms) fenofibrate micronized 134 mg capsule 134 mg PO DAILY Rx Instructions: PT STATES SHE TAKES THIS MEDICATION omeprazole magnesium 20 mg capsule,delayed release(DR/EC) 20 mg PO DAILY nitroglycerin [Nitrostat] 0.4 mg tablet, sublingual 0.4 mg SUBLINGUAL Q5M PRN (Reason: Chest Pain) Vitamin C 500 mg Tablet 500 mg PO DAILY Miralax 17 gram/dose Powder 17 g PO DAILY PRN (Reason: Constipation) losartan 100 mg tablet 100 mg PO DAILY Xarelto 15 mg Tablet 15 mg PO BID Rx Instructions: PER FANNY AT OFFICE STATES THE PT TAKES BID Percocet 10-325 mg Tablet 1 tab PO Q4H MDD 6 TABS PRN (Reason: Pain) calcitonin (salmon) 200 unit/actuation spray,non-aerosol See Rx Instructions .ROUTE .COMPLEX Rx Instructions: ONE SPRAY IN ONE NOSTRIL EVERYDAY ALTERNATING NOSTRILS PT STATES SHE TAKES WHEN HER DAUGHTER MAKES HER Linzess 72 mcg capsule 72 mcg PO QAM Rx Instructions: PT STATES SHE DOESNT TAKE EVERYDAY Discharge Orders: Discharge ED (Routine); Ordered 03/11/23 Ordered By: Dariel Calle Referrals: Adriana Gramajo DO [Primary Care Provider] - 1-3 days Discharge Diet: Advance as tolerated Discharge Activity: Resume usual activity Patient Instructions: Head Injury (ED) Coding Level of Care Code ED Resource Room Special Education Teacher for Cheyenne Norwood
--- NOTE | 2023-03-11 20:34 | XRR_ITS ---
PROCEDURE INFORMATION: Exam: XR Right Forearm Exam date and time: 03/11/2023 8:39 PM Age: 87 years old Clinical indication: Injury or trauma; Fall; Blunt trauma (contusions or hematomas); Arm, upper; TECHNIQUE: Imaging protocol: Radiologic exam of the right forearm. Views: 2 views. COMPARISON: No relevant prior studies available. FINDINGS: Bones/joints: Suggestion of mild decreased bone density. The osseous structures appear grossly intact. No evidence of acute fractures. No evidence of joint dislocation.. Soft tissues: Suspected minimal soft tissue swelling however no large focal soft tissue swelling is identified. XR/XR forearm RT 2V [id number] IMPRESSION: No evidence of acute fractures or traumatic dislocation.
[2023-03-11 21:56] VITALS: PULSE 90; RESP 16; O2SAT 98
== END 2023-03-11 21:58 | disposition home or self-care (01) ==
PROVIDERS: Emergency Provider Emergency Medicine; PCP Family Medicine
DX: S09.8XXA Other specified injuries of head, initial encounter (principal); S41.111A Laceration without foreign body of right upper arm, initial encounter; Z79.82 Long term (current) use of aspirin; E78.5 Hyperlipidemia, unspecified; I10 Essential (primary) hypertension; Z79.01 Long term (current) use of anticoagulants; W01.198A Fall on same level from slipping, tripping and stumbling with subsequent striking against other object, initial encounter
CPT/HCPCS: 70450; 73090; 99284

== ENCOUNTER 2023-11-28 10:10 | Inpatient (IN) | payer MEDICARE, OTHER, SELFPAY ==
[2023-11-28] VITALS (99 sets, daily range): BP systolic 103–177; BP diastolic 55–93; PULSE 70–126; RESP 9–35; TEMP 36.6–37.3; O2SAT 77–100; BMI 20.7
--- NOTE | 2023-11-28 10:21 | CT_ITS ---
WS: [id number] CT HEAD NONCONTRAST HISTORY: ams TECHNIQUE: Contiguous axial imaging performed through the brain in 2.5 mm imaging. Bone and soft tiss ue windows. Sagittal and coronal reformats reviewed. All CT scans at [facility] use at least one of these dose optimization techniques: automated exposure control; mA and/or kV adjustment per pa tient size (includes targeted exams where dose is matched to clinical indication); or iterative recon struction. DLP: 1994.98 mGy.cm COMPARISON: 03/11/2023 No acute intracranial hemorrhage, midline shift or mass effect. Mild bilateral cerebral and cerebellar atrophy with mild small vessel ischemic disease. No prior infa rct. Ventricles: Normal size with no hydrocephalus. No intra displacement of the cerebellar tonsils. Paranasal sinuses: Tiny air-fluid level in the LEFT maxillary sinus. Mastoid air cells: Well pneumatized. Calvarium and scalp: Skull is intact with no soft tissue edema or swelling. IMPRESSION: 1. No acute intracranial hemorrhage or edema. 2. Mild cerebral and cerebellar atrophy and small vessel ischemic disease. 3. No prior infarct.
--- NOTE | 2023-11-28 10:21 | XR_ITS ---
WS: [id number] Exam: XR chest 1V portable [id number] Date/Time of Exam: 11/28/2023 10:24 AM Reason For Exam: ams No previous exams. The lungs are fully inflated and clear. Normal cardiomediastinal silhouette. No pleural effusions. He aling posterior RIGHT sixth rib fracture. Old posterior RIGHT eighth rib fracture. EKG leads overlie the chest. L1 vertebroplasty. IMPRESSION: 1. No acute cardiopulmonary finding. 2. Healing RIGHT posterior sixth rib fracture. Old RIGHT eighth rib fracture.
--- NOTE | 2023-11-28 10:26 | W.ED.AMS ---
HPI - Altered Mental Status General: Chief Complaint: Altered Mental Status Stated Complaint: ams Time Seen by Provider: 11/28/23 10:16 Source: EMS Mode of arrival: EMS Limitations: altered mental status History of Present Illness: 87-year-old female who is here from home for altered mental status. Per EMS family states she been very lethargic throughout the day last night went to bed at 8 PM when she woke up she is not really responding. Here she responds to verbal stimuli but will not follow any commands will not speak to me at this time. Patient is very frail she has had no known fever. Not able to get any history from patient Review of Systems General: Reports: ROS unobtainable due to mental status PFS ED PFSH: Medical History GERD (gastroesophageal reflux disease) Heart disease Hyperlipidemia Hypertension Multiple myeloma Osteoporosis Surgical History History of vaginal surgery (10/13/19) Colpocleisis with uterus in place. Performed by Dr. Conde at [facility] [place]. S/P tonsillectomy and adenoidectomy Performed in [place], [place] S/P tubal ligation Performed at [facility] and [place], [place] Family History Mother Hypertension Hyperlipidemia Stroke Father Hypertension Sister Hypertension Diabetes Hyperlipidemia Unknown Heart disease Multiple family members Social History Smoking and tobacco/nicotine status: never used tobacco/nicotine Alcohol intake: never Substance/Drug Use: never Additional social history: Well balanced diet Physical Exam Const: COMMON NORMALS: negative for patient oriented x3 and negative for alert GENERAL APPEARANCE: ill appearing and frail appearing HENMT: COMMON NORMALS: normocephalic and atraumatic HEAD & SCALP: normocephalic and atraumatic Eye: COMMON NORMALS: conjunctivae normal CONJUNCTIVA: Yes conjunctivae normal Neck/C-Spine: COMMON NORMALS: supple Chest: COMMONS NORMALS: normal inspection of the chest Resp: COMMON NORMALS: normal respiratory effort and clear to auscultation bilaterally AUSCULTATION: clear to auscultation bilaterally Cardio: COMMON NORMALS: regular rate and regular rhythm RATE: regular rate RHYTHM: regular rhythm GI: COMMON NORMALS: Normal to inspection, nondistended, normoactive bowel sounds present, Soft to palpation, non-tender and No hepatosplenomegaly present PALPATION: Yes Soft to palpation and Yes No hepatosplenomegaly present Extremity: COMMON NORMALS: normal to inspection Neuro: COMMON NORMALS: negative for patient oriented x3 SENSORIUM/ORIENTATION: No alert Psych: COMMON NORMALS: negative for mental status grossly normal Course Vital Signs: Vital signs: Vital Signs Temperature 98 F 11/28/23 10:15 Pulse Rate 95 11/28/23 13:27 Respiratory Rate 23 H 11/28/23 13:27 Blood Pressure 156/82 11/28/23 11:12 Pulse Oximetry 97 11/28/23 13:27 Oxygen Delivery Me thod Room Air 11/28/23 11:12 MDM - Altered Mental Status Medical Decision Making Patient present here with altered mental status no sign of infection here head CT is normal as well she does have an elevated lactic she has some dehydration as well did get blood cultures we will start antibiotics at this time spoke to hospitalist and will admit. Medical Records I reviewed the patient's medical records. Lab Data I reviewed the patient's lab results. 11/28/23 10:56 11/28/23 10:56 Laboratory Results WBC 9.83 10^3/uL (3.29-11.43) 11/28/23 10:56 RBC 5.10 10^6/uL (3.85-5.65) 11/28/23 10:56 Hgb 13.90 g/dL (11.27-16.99) 11/28/23 10:56 Hct 44.4 % (36-47) 11/28/23 10:56 MCV 87.1 fl (85-98) 11/28/23 10:56 MCH 27.3 pg (27-33) 11/28/23 10:56 MCHC 31.3 g/dL (30-55) 11/28/23 10:56 RDW 15.0 % (12.1-15.1) 11/28/23 10:56 Plt Count 227 10^3/cmm (157-399) 11/28/23 10:56 MPV 11.4 fL (7.4-10.4) H 11/28/23 10:56 Neut % (Auto) 72.4 % 11/28/23 10:56 Lymph % (Auto) 19.9 % 11/28/23 10:56 [place] % (Auto) 7.0 % 11/28/23 10:56 Eos % (Auto) 0.0 % 11/28/23 10:56 Baso % (Auto) 0.2 % 11/28/23 10:56 Neut # (Auto) 7.11 10^3/uL (1.8-7.7) 11/28/23 10:56 Lymph # (Auto) 2.0 10^3/uL (0.8-4.8) 11/28/23 10:56 [place] # (Auto) 0.7 10^3/uL (0.2-0.9) 11/28/23 10:56 Eos # (Auto) 0.0 10^3/uL (0.0-0.8) 11/28/23 10:56 Baso # (Auto) 0.0 10^3/uL (0.0-0.1) 11/28/23 10:56 Nucleated RBC % (auto) 0 % 11/28/23 10:56 Nucleated RBCs # 0.0 /100WBC 11/28/23 10:56 PT 19.70 SECONDS (12.1-14.9) H 11/28/23 10:56 INR 1.61 (0.8-1.2) H 11/28/23 10:56 Specimen Type Arterial 11/28/23 10:34 Sample Site Radial, right 11/28/23 10:34 ABG pH 7.51 (7.35-7.45) H 11/28/23 10:34 ABG pCO2 17.4 mmHg (35-45) L* 11/28/23 10:34 ABG pO2 97.9 mmHg (80.0-100.0) 11/28/23 10:34 ABG PO2/FiO2 Ratio 0 11/28/23 10:34 ABG HCO3 13.8 mmol/L (22-26) L 11/28/23 10:34 ABG Base Excess -6.4 mmol/L (-2.0-2.0) L 11/28/23 10:34 Emile Test Pos 11/28/23 10:34 Hematocrit 43.5 % (37-47) 11/28/23 10:34 O2 Delivery Device Room air 11/28/23 10:34 FiO2 21.0 % 11/28/23 10:34 Tub Attendant ID glc 11/28/23 10:34 Sodium 138 mmol/L (136-145) 11/28/23 10:56 Potassium 4.6 mmol/L (3.5-5.1) 11/28/23 10:56 Chloride 100 mmol/L (98-107) 11/28/23 10:56 Carbon Dioxide 17 mmol/L (22-29) L 11/28/23 10:56 Anion Gap 25.6 (5-19) H 11/28/23 10:56 BUN 17 mg/dL (8-23) 11/28/23 10:56 Creatinine 1.4 mg/dL (0.5-0.9) H 11/28/23 10:56 GFR Calculation Not Reportable 11/28/23 10:56 Glucose 165 mg/dL (65-115) H 11/28/23 10:56 Calculated Osmolality 291 mOsm/kg (285-295) 11/28/23 10:56 Lactic Acid 6.1 mmol/L (0.5-2.2) H* 11/28/23 10:56 Calcium 9.6 mg/dL (8.5-10.5) 11/28/23 10:56 Magnesium 2.0 mg/dL (1.7-2.3) 11/28/23 10:56 Total Bilirubin 0.6 mg/dL (0.15-1.2) 11/28/23 10:56 AST 16 U/L (0-32) 11/28/23 10:56 ALT 6 U/L (0-33) 11/28/23 10:56 Alkaline Phosphatase 45 U/L (35-105) 11/28/23 10:56 Ammonia 25 umol/L (11-51) 11/28/23 10:56 Creatine Kinase 32 U/L (26-192) 11/28/23 10:56 Troponin T Baseline 55 ng/L (0-10) H 11/28/23 10:56 Total Protein 6.8 g/dL (6.6-8.7) 11/28/23 10:56 Albumin 4.1 g/dL (3.5-5.2) 11/28/23 10:56 Globulin 2.7 g/dL (1.3-4.6) 11/28/23 10:56 TSH 2.32 uIU/mL (0.27-4.20) 11/28/23 10:56 Urine Color Yellow (Yellow) 11/28/23 10:56 Urine Appearance Clear (CLEAR) 11/28/23 10:56 Urine pH 5 (5-7) 11/28/23 10:56 Ur Specific [place] 1.015 (1.005-1.030) 11/28/23 10:56 Urine Protein Neg (Negative) 11/28/23 10:56 Urine Glucose (UA) Norm (Normal) 11/28/23 10:56 Urine Ketones 1+ (Negative) H 11/28/23 10:56 Urine Blood Trace (Negative) H 11/28/23 10:56 Urine Nitrate Negative (Negative) 11/28/23 10:56 Urine Bilirubin Neg (Negative) 11/28/23 10:56 Urine Urobilinogen Norm mg/dL (Negative) 11/28/23 10:56 Ur Leukocyte Esterase Negative (Negative) 11/28/23 10:56 Urine RBC 0-4 /hpf (0-2) H 11/28/23 10:56 Urine WBC 15-25 /hpf (0-5) H 11/28/23 10:56 Ur Squamous Epith Cells 0-4 /hpf (0-5) H 11/28/23 10:56 Amorphous Sediment Not Reportable 11/28/23 10:56 Urine Bacteria Trace /hpf (NONE) 11/28/23 10:56 Urine Mucus 1+ /hpf 11/28/23 10:56 Urine Yeast 3+ /hpf H 11/28/23 10:56 All radiology interpretation(s) finalized by discharge EKG Data EKG 1: I personally reviewed and interpreted this EKG as follows: EKG interpretation date: 11/28/23 EKG interpretation time: 10:45 Interpretation: hr [address] or t wave abnormalities qrs 133 qtc 460 Discharge Plan Discharge Patient Disposition: Admitted As Inpatient Admit Provider: Gemma Crews Clinical Impression: Altered mental status, Elevated lactic acid level Condition: Stable Coding Level of Care Code ED Internal Consultant for Chg Enma
--- NOTE | 2023-11-28 10:45 | ECG_ITS ---
[facility] Test Date: 2023-11-28 Pat Name: Cristy Childers Department: Room: Gender: Female Color Maker: : 1935 Requested By: Dariel Calle Order Number: [id number] Max MD: Betsy Linares M.D. Measurements Intervals [place] Rate: 96 P: 0 SD: 0 QRS: 38 QRSD: 133 T: 74 QT: 406 QTc: 515 Interpretive Statements ATRIAL FIBRILLATION INTRAVENTRICULAR CONDUCTION DELAY [130+ ms QRS DURATION] SEPTAL MYOCARDIAL INFARCTION , PROBABLY OLD [40+ ms Q WAVE IN V1/V2] Compared to ECG 08/14/2019 11:57:13 Intraventricular conduction delay now present Myocardial infarct finding now present Ventricular premature complex(es) no longer present Aberrant conduction of supraventricular beat(s) no longer present ST (T wave) deviation no longer present Electronically Signed On 11-28-2023 21:06:17 SLOT MACHINE KEY PERSON by Betsy Linares M.D. [id number]
[2023-11-28 10:46] LABS: ABG PH Result 7.51 (7.35-7.45); Arterial Blood Gas Hematocrit 43.5 % (37-47); Base Excess ABG -6.4 mmol/L (-2.0-2.0); Blood Gas Allen Test Pos; Blood Gas Operator Identificat glc; Blood Gas Sample Site Radial, right; Blood Gas Sample Type Arterial; HCO3 ABG 13.8 mmol/L (22-26); Oxygen Device ROOM AIR; PO2 ABG 97.9 mmHg (80.0-100.0); PO2 FiO2 Ratio Arterial Blood 0
[2023-11-28 10:47] LABS: ABG PCO2 17.4 mmHg (35-45)
[2023-11-28 11:05] LABS: Basophils % 0.2 %; Hematocrit 44.4 % (36-47); Lymphocytes % 19.9 %; Mean Corpuscular HGB Conc 31.3 g/dL (30-55); Mean Corpuscular Hemoglobin 27.3 pg (27-33); Mean Corpuscular Volume 87.1 fl (85-98); Mean Platelet Volume 11.4 fL (7.4-10.4); Monocytes # 0.7 10^3/uL (0.2-0.9); Neutrophils # 7.11 10^3/uL (1.8-7.7); Neutrophils % 72.4 %; Nucleated Red Blood Cells % 0 %; Platelet Count 227 10^3/cmm (157-399); White Blood Count 9.83 10^3/uL (3.29-11.43)
[2023-11-28 11:18] LABS: INR 1.61 (0.8-1.2)
[2023-11-28 11:23] LABS: Troponin(5th) Baseline 55 ng/L (0-10)
[2023-11-28 11:24] LABS: Ammonia 25 umol/L (11-51)
[2023-11-28 11:32] LABS: Bilirubin Urine Neg (Negative); Blood Urine Trace (Negative); Glucose Urine UA Norm (Normal); Ketones Urine 1+ (Negative); Nitrate Urine Negative (Negative); Protein Urine Neg (Negative); Specific Gravity, Urine 1.015 (1.005-1.030); Urine Appearance Clear (CLEAR); Urine Color Yellow (Yellow); pH Urine 5 (5-7)
[2023-11-28 11:33] LABS: Add Urine Microscopic? YES; Leukocyte Esterase Urine Negative (Negative); Urobilinogen Urine Norm (Negative)
[2023-11-28 11:34] LABS: Alanine Aminotransferase 6 U/L (0-33); Albumin Level 4.1 g/dL (3.5-5.2); Alkaline Phosphatase 45 U/L (35-105); Anion Gap 25.6 (5-19); Aspartate Amino Transferase 16 U/L (0-32); Blood Urea Nitrogen 17 mg/dL (8-23); Calcium 9.6 mg/dL (8.5-10.5); Carbon Dioxide 17 mmol/L (22-29); Chloride 100 mmol/L (98-107); Creatine Phosphokinase 32 U/L (26-192); Creatinine Clr Calc Pharmacy 21.7375; Globulin 2.7 g/dL (1.3-4.6); Glucose 165 mg/dL (65-115); Osmolality Calculated 291 mOsm/kg (285-295); Potassium 4.6 mmol/L (3.5-5.1); Sodium 138 mmol/L (136-145); Thyroid Stimulating Hormone 2.32 uIU/mL (0.27-4.20); Total Bilirubin 0.6 mg/dL (0.15-1.2); Total Protein 6.8 g/dL (6.6-8.7)
[2023-11-28 11:35] LABS: Lactic Sepsis W/Reflex 6.1 mmol/L (0.5-2.2)
[2023-11-28] MEDS: sodium chloride 0.9% 1,000 ML 999 ML IV ×2 (11:35→12:04)
[2023-11-28 11:37] LABS: Add Urine Culture? Yes; Bacteria Urine TRACE /hpf; Mucus Urine 1+ /hpf; RBC Urine 0-4 /hpf (0-2); Squamous Epithelial Cell Urine 0-4 /hpf (0-5); WBC Urine 15-25 /hpf (0-5)
[2023-11-28] MEDS: piperacillin-tazobactam 3.375 GM in sodium chloride 0.9% (plus) 50 ML IV (12:05)
--- NOTE | 2023-11-28 12:06 | PC.NURSE ---
Medication Delay: Vancomycin delayed d/t Zosyn currently infusing
--- NOTE | 2023-11-28 12:10 | CT_ITS ---
WS: [id number] CT CHEST, ABDOMEN AND PELVIS WITH CONTRAST HISTORY: sepsis/possible pneumonia TECHNIQUE: Contiguous 5 mm axial imaging performed through the chest, abdomen and pelvis with IV cont rast, oral contrast has not been provided. Coronal and sagittal reformats chest. Coronal and sagittal reformats through the abdomen and pelvis. All CT scans at [facility] use at least one of the se dose optimization techniques: automated exposure control; mA and/or kV adjustment per patient size (includes targeted exams where dose is matched to clinical indication); or iterative reconstruction. CONTRAST: Omnipaque 350; 100 mL IV. DLP: 736.94 mGy.cm COMPARISON: None available. Quality of this examination is significantly compromised by extensive motion artifact despite obtaini ng adequate imaging. Chest CT: Severe motion artifact. No large areas of hemorrhage or edema or pneumonia. There are a few scattered calcifications. No effusions. Normal size pulmonary artery. No central filling defects. Mi ld atherosclerosis aorta. Moderate cardiomegaly. Large hiatal hernia. Abdomen CT: Significant motion artifact. The liver is normal size. No bile duct dilatation. The gallb ladder is mildly hydropic but otherwise limited by significant motion artifact. No bile duct dilatati on. Normal size spleen. Mild pancreatic atrophy. No adrenal mass. No renal obstruction. Moderate athe rosclerosis aorta. No GI tract obstruction. The would be difficult to exclude small foci of free air. No wall thickening within the GI tract. Increasing fecal material distally. Pelvic CT: Bernal catheter is present. Air in the urinary bladder from the Bernal catheter placement. N o inguinal lymph nodes. Atrophic partially calcified uterus. Advanced degenerative changes throughout the thoracic and lumbar spines. Prior kyphoplasty at T12. He aled fracture RIGHT pubic rami. IMPRESSION: 1. Quality of this examination is significantly compromised by motion artifact. 2. Large hiatal hernia. 3. No pneumonia. 4. Mildly distended gallbladder. There is significant motion artifact obscuring additional evaluatio n. Ultrasound evaluation may provide additional information. 5. No GI tract obstruction. 6. No renal obstruction. 7. Bernal catheter in good position. 8. No ascites. 9. Increased constipation in the distal colon.
--- NOTE | 2023-11-28 12:10 | PM.HP ---
Providers/Chief Complaint Primary Care Provider: Adriana Gramajo DO Chief Complaint: ams History of Present Illness Patient is a 87-year-old female with a past medical history of dementia, hyperlipidemia, hypertension, heart disease, osteoporosis who presented to the hospital today for complaint of altered mental status. She was brought in by her daughter. The daughter states for the last few days the patient has been a little bit lethargic but yesterday was very very lethargic. This morning when she woke up she has not not been very very responsive. She will wake up and talk to you a little bit but then falls right back asleep. Patient is quite frail and has had no no fever. Daughter denies any nausea vomiting diarrhea abdominal pain, chest pain or any other complaints at this time. Daughter does state that in the past every time patient has a UTI she sort of behavior like this in the past she has had elevated lactic acid similar to this admission and this is sort of normal for her. She says every time she gets sick she would have an elevated lactic acid and it comes on eventually over the next day or 2. Does not complain of any chest pain or any other symptoms. I talked to patient and she was able to tell me her name however nodded her head when I told her I was auscultating and did not grimace to palpation when abdomen was palpated. I asked her how she was doing and she said I am okay. Other than this patient did not talk much. Daughter and son are at bedside. Daughter states that patient is a DNR and she has discussed as long time ago with the patient. She is a DNR and DNI. Daughter and son both confirm that. CT chest abdomen pelvis has been grossly negative. I have discussed results with family. I have told him the only thing abnormal at this time is urinalysis and lactic acid of 6.1. Medications/Allergies Home Medications Medication Instructions Recorded Confirmed Last Taken Type acetaminophen 500 mg tablet 1,000 mg PO PRN 10/05/19 11/28/23 10/07/19 14:00 History (Tylenol Extra Strength) aspirin 325 mg tablet 325 mg PO DAILY PRN UNKNOWN 10/05/19 11/28/23 1 Week Ago History ~10/01/19 calcium carbonate 600 mg calcium 600 mg PO QPM 10/05/19 11/28/23 11/27/23 History (1,500 mg) tablet cholecalciferol (vitamin D3) 25 1,000 unit PO QPM 10/05/19 11/28/23 11/27/23 History mcg (1,000 unit) capsule (Vitamin D3) nitroglycerin 0.4 mg sublingual 0.4 mg sublingual Q5M PRN Chest 10/05/19 11/28/23 Unknown History tablet (Nitrostat) Pain omeprazole magnesium 20 mg 20 mg PO DAILY 10/05/19 11/28/23 11/27/23 History capsule,delayed release calcitonin (salmon) 200 See Rx Instructions .Route .COMPLEX 08/24/20 11/28/23 11/27/23 History unit/actuation nasal spray oxycodone-acetaminophen 10 mg-325 1 tab PO Q4H PRN Pain 08/24/20 11/28/23 08/24/20 08:00 History mg tablet (Percocet) polyethylene glycol 3350 17 17 g PO DAILY PRN Constipation 08/24/20 11/28/23 Unknown History gram/dose oral powder (Miralax) apixaban 2.5 mg tablet (Eliquis) 2.5 mg PO BID 11/28/23 11/28/23 11/27/23 History atorvastatin 20 mg tablet 20 mg PO DAILY 11/28/23 11/28/23 11/27/23 History diphenoxylate-atropine 2.5 1 tab PO Q6H PRN diahrrea 11/28/23 11/28/23 Unknown History mg-0.025 mg tablet furosemide 40 mg tablet 40 mg PO QAM PRN Edema 11/28/23 11/28/23 Unknown History losartan 25 mg tablet 12.5 mg PO DAILY 11/28/23 11/28/23 Unknown History metoprolol tartrate 25 mg tablet 25 mg PO BID 11/28/23 11/28/23 11/27/23 History mirtazapine 7.5 mg tablet 7.5 mg PO BEDTIME 11/28/23 11/28/23 11/27/23 History potassium chloride 10 mEq 20 meq PO DAILY 11/28/23 11/28/23 Unknown History tablet,extended release trazodone 50 mg tablet 50 mg PO BEDTIME 11/28/23 11/28/23 11/27/23 History zinc gluconate 50 mg tablet 50 mg PO QPM 11/28/23 11/28/23 11/27/23 History Allergies Allergy/AdvReac Type Severity Reaction Status Date / Time clarithromycin Allergy Intermediate Hives Verified 11/28/23 10:19 PFSH Acute PFSH: Medical History GERD (gastroesophageal reflux disease) Heart disease Hyperlipidemia Hypertension Multiple myeloma Osteoporosis Surgical History History of vaginal surgery (10/13/19) Colpocleisis with uterus in place. Performed by Dr. Conde at [facility] [place]. S/P tonsillectomy and adenoidectomy Performed in [place], [place] S/P tubal ligation Performed at [facility] and [place], [place] Family History Mother Hypertension Hyperlipidemia Stroke Father Hypertension Sister Hypertension Diabetes Hyperlipidemia Unknown Heart disease Multiple family members Social History Smoking and tobacco/nicotine status: never used tobacco/nicotine Alcohol intake: never Substance/Drug Use: never Additional social history: Well balanced diet Vitals/I&O/Wt Last Vital Signs Temp 98 F 11/28/23 10:15 Pulse 76 11/28/23 11:12 Resp 20 H 11/28/23 11:12 BP 156/82 11/28/23 11:12 Pulse Ox 98 11/28/23 11:12 O2 Del Method Room Air 11/28/23 11:12 Weight last 48 hrs Weight 49.895 kg Physical Exam Narrative: No acute distress Laying in bed in position, denies being in pain at this time Normal S1-S2 Lungs bilaterally no wheezes no rhonchi Unable to palpate for pedal pulses secondary to patient's positioning however feet are well-perfused and warm. No lower extremity edema present Abdomen soft nontender Pelvic area nontender Bowel sounds positive Son and daughter at bedside. Neuro: Limited however nonfocal. Moves all 4 extremities. Urinary Catheter Management: Bernal: Cath Placed During This Visit: yes Urinary Catheter Date of Insertion: 11/28/23 Urinary Catheter Time of Insertion: 11:00 Data 11/28/23 10:56 11/28/23 17:00 Micro: Microbiology 11/28/23 11:55 Blood Culture - Preliminary Blood SPECIMEN COLLECTED 11/28/23 10:56 Blood Culture - Preliminary Blood SPECIMEN COLLECTED A&P Assessment and plan (1) Hypertension: Qualifiers: Hypertension type: essential hypertension Qualified Code(s): I10 - Essential (primary) hypertension (2) GERD (gastroesophageal reflux disease): (3) Incontinence of urine: Qualifiers: Urinary Incontinence type: urge incontinence Qualified Code(s): N39.41 - Urge incontinence (4) Altered mental status: (5) Elevated lactic acid level: (6) UTI (urinary tract infection): (7) NSTEMI (non-ST elevated myocardial infarction): Plan #Altered mental status #UTI #Metabolic encephalopathy most likely secondary to UTI # NSTEMI #History of hypertension, hyperlipidemia #Elevated lactic acidosis #History of GERD #Incontinent of urine ? UA mildly suggestive of UTI. All other workup has been negative. CT chest abdomen pelvis reviewed. Distended gallbladder. ? Will check for gallbladder ultrasound ? Trend troponins. Baseline troponin 25. EKG nonischemic ? Serial EKGs ? 6-hour troponin 100. Delta troponin 48. ? Start heparin drip, placed on aspirin. Continue atorvastatin 40 daily ? N.p.o. at this time. Discussed with nursing staff to do bedside swallow evaluation before feeding patient when she is more awake ? We will check serial EKGs ? Check echo for wall motion abnormalities ? Patient is DNR/DNI as per family. ? Placed on cefepime1 g twice daily for UTI. Patient did receive Vanco and Zosyn in the ER. ? Check urine culture ? Check blood cultures -Check speech swallow evaluation ? Trend lactic acid. Initial one 6.1. Place patient on normal saline 125 cc/h. Patient weighs 57 kg ? Will repeat lactic acid in 3 hours. She did receive 1 L normal saline bolus in ER. -Give additional 500 cc normal saline bolus. -Admit to ICU at this time for further monitoring. DNR/DNI DVT prophylaxis: Heparin drip should suffice Attestations Medical Necessity Statement*: Patient requires greater than 2 midnight stay for management of altered mental status Diagnoses Essential hypertension I10 Hypertension type: essential hypertension GERD (gastroesophageal reflux disease) K21.9 Urge incontinence of urine N39.41 Urinary Incontinence type: urge incontinence Altered mental status R41.82 Elevated lactic acid level R79.89 UTI (urinary tract infection) N39.0 NSTEMI (non-ST elevated myocardial infarction) I21.4
--- NOTE | 2023-11-28 12:21 | ECG_ITS ---
[facility] Test Date: 2023-11-28 Pat Name: Cristy Childers Department: Room: Gender: Female Body Team Member: : 1935 Requested By: Dariel Calle Order Number: [id number] Max MD: Betsy Linares M.D. Measurements Intervals [place] Rate: 111 P: 0 [place]: 0 QRS: -89 QRSD: 122 T: 103 QT: 369 QTc: 503 Interpretive Statements ATRIAL FIBRILLATION WITH RAPID VENTRICULAR RESPONSE WITH ABERRANT CONDUCTION OR VENTRICULAR PREMATURE COMPLEXES INDETERMINATE AXIS ANTEROSEPTAL MYOCARDIAL INFARCTION , OF INDETERMINATE AGE [40+ ms Q WAVE IN V1-V4] ST DEPRESSION, CONSIDER SUBENDOCARDIAL INJURY [0.1+ mV ST DEPRESSION] Compared to ECG 11/28/2023 10:45:04 Ventricular premature complex(es) now present Aberrant conduction of supraventricular beat(s) now present Indeterminate axis now present ST (T wave) deviation now present Intraventricular conduction delay no longer present Myocardial infarct finding still present Electronically Signed On 11-28-2023 21:15:56 JAVA PROGRAMMER ANALYST by Betsy Linares M.D. [email or web address] [facility]aks [facility].[email or web address]/store/OM/[id number]
[2023-11-28 12:47] LABS: Reflex Lactate Order REFLEX LACTIC ORDERD
[2023-11-28] MEDS: iohexol 350 mg/mL 500 mL Btl (per mL) IV (13:07)
[2023-11-28] MEDS: vancomycin 1,000 MG in sodium chloride 0.9% 250 ML 250 MG IV (13:10)
[2023-11-28 13:27] LABS: Troponin 5 2HR 63.67 ng/L (0-10); Troponin 5 2HR Delta 8.67 ABS# (0-10)
--- NOTE | 2023-11-28 13:42 | US_ITS ---
WS: [id number] RIGHT UPPER QUADRANT ULTRASOUND HISTORY: distended GB, sepsis COMPARISON: None available. Examination was limited by patient movement during the exam. Liver: 11.4 cm in length. Normal size liver and echogenicity. No bile duct dilatation or mass. Portal Vein: Normal hepatopetal flow with monophasic waveform. Gallbladder: Normally distended gallbladder with no stones or wall thickening. The neck of the gallbl adder is poorly visualized due to patient movement. Cannot exclude small stones in the neck of the ga llbladder. CBD: 0.4 cm Pancreas: Not visualized. Right kidney: 8.4 cm in length. Low normal size kidney. The kidney is very poorly visualized. There i s no evidence for hydronephrosis. Aorta and IVC: Not well visualized. No ascites. IMPRESSION: 1. By ultrasound the gallbladder is negative. No stones or wall thickening or fluid identified. 2. No bile duct dilatation. 3. Poor visualization of the kidney but there is no hydronephrosis.
[2023-11-28 14:20] LABS: Estmated Average Glucose 103; Hemoglobin A1C 5.2 % (4.0-6.0)
[2023-11-28 14:41] LABS: Procalcitonin 0.22 ng/mL (0-0.5); Thyroid Stimulating Hormone 2.29 uIU/mL (0.27-4.20); Vitamin B12 318 pg/mL (232-1245)
[2023-11-28] MEDS: cefepime 1,000 MG in sodium chloride 0.9% (plus) 50 ML 100 MG IV (15:15)
[2023-11-28] MEDS: pantoprazole 40 mg SDV IVP (15:16)
[2023-11-28] MEDS: sodium chloride 0.9% 1,000 ML 75 ML IV (15:16)
[2023-11-28 15:53] LABS: Lactic Acid level (Lactate) 5.9 mmol/L (0.5-2.2)
--- NOTE | 2023-11-28 17:23 | ECG_ITS ---
[facility] Test Date: 2023-11-28 Pat Name: Cristy Childers Department: Room: [facility]05 Gender: Female Dye And Chemical Coordinator: : 1935 Requested By: Dariel Calle Order Number: [id number] Max MD: Betsy Linares M.D. Measurements Intervals [place] Rate: 81 P: 0 [place]: 0 QRS: 85 QRSD: 80 T: 119 QT: 391 QTc: 456 Interpretive Statements ATRIAL FIBRILLATION LOW QRS VOLTAGE IN PRECORDIAL LEADS [QRS DEFLECTION < 1.0 mV IN CHEST LEADS] SEPTAL MYOCARDIAL INFARCTION , OF INDETERMINATE AGE [40+ ms Q WAVE IN V1/V2] LATERAL MYOCARDIAL INFARCTION , OF INDETERMINATE AGE [40+ ms Q WAVE AND/OR ST/T ABNORMALITY IN I/aVL/V5/V6] Compared to ECG 11/28/2023 12:25:11 Low QRS voltage now present Ventricular premature complex(es) no longer present Aberrant conduction of supraventricular beat(s) no longer present Indeterminate axis no longer present ST (T wave) deviation no longer present Myocardial infarct finding still present Electronically Signed On 11-28-2023 21:17:58 YARN TWISTER by Betsy Linares M.D. [email or web address] [email or web address]/[id number]
[2023-11-28 17:47] LABS: Anion Gap 17.4 (5-19); Blood Urea Nitrogen 16 mg/dL (8-23); Calcium 8.2 mg/dL (8.5-10.5); Carbon Dioxide 17 mmol/L (22-29); Chloride 106 mmol/L (98-107); Creatinine Clr Calc Pharmacy 29.4591; Glucose 121 mg/dL (65-115); Osmolality Calculated 284 mOsm/kg (285-295); Potassium 4.4 mmol/L (3.5-5.1); Sodium 136 mmol/L (136-145); Troponin 5 6HR 101.3 ng/L (0-10); Troponin 5 6HR Delta 46.3 ng/L (0-12)
[2023-11-28] MEDS: heparin drip 25,000 UNIT/500 ML PREMIX 16 UNIT IV (18:39)
[2023-11-28] MEDS: sodium chloride 0.9% 500 ML IV (20:26)
[2023-11-28 21:59] LABS: Lactic Sepsis W/Reflex 2.8 mmol/L (0.5-2.2)
[2023-11-28] MEDS: sodium chloride 0.9% 1,000 ML 125 ML IV (22:03)
[2023-11-28 23:21] LABS: Reflex Lactate Order REFLEX LACTIC ORDERD
[2023-11-29] VITALS (83 sets, daily range): BP systolic 119–169; BP diastolic 69–125; PULSE 70–217; RESP 7–44; TEMP 36.9–37.1; O2SAT 71–100
[2023-11-29 00:49] LABS: Lactic Acid level (Lactate) 2.9 mmol/L (0.5-2.2)
[2023-11-29 00:59] LABS: Partial Thromboplastin Time 118.5 SECONDS (23.9-36.7)
[2023-11-29] MEDS: cefepime 1,000 MG in sodium chloride 0.9% (plus) 50 ML 100 MG IV ×2 (01:10→13:25)
--- NOTE | 2023-11-29 05:14 | PC.NURSE ---
Shift Summary: Patient rested through most of this nurse's shift. Vitals remain within normal limits, controlled afib in the 80s on Room Air. Patient has been able to turn through the night on her own. Orientation has improved into the morning hours. Alert to person and now, confused to year and location. Patient follows commands well. Echo completed this morning awaiting results.
[2023-11-29 06:14] LABS: Basophils % 0.1 %; Eosinophils % 0.1 %; Hematocrit 37.6 % (36-47); Lymphocytes # 1.4 10^3/uL (0.8-4.8); Lymphocytes % 15.5 %; Mean Corpuscular HGB Conc 31.6 g/dL (30-55); Mean Corpuscular Hemoglobin 27.9 pg (27-33); Mean Corpuscular Volume 88.3 fl (85-98); Mean Platelet Volume 11.4 fL (7.4-10.4); Monocytes # 1.1 10^3/uL (0.2-0.9); Monocytes % 12.6 %; Neutrophils # 6.28 10^3/uL (1.8-7.7); Neutrophils % 71.2 %; Nucleated Red Blood Cells % 0 %; Platelet Count 177 10^3/cmm (157-399); Red Blood Count 4.26 10^6/uL (3.85-5.65); Red Cell Distribution Width 15.6 % (12.1-15.1); White Blood Count 8.82 10^3/uL (3.29-11.43)
[2023-11-29] MEDS: sodium chloride 0.9% 1,000 ML 125 ML IV ×2 (06:24→17:22)
[2023-11-29 06:41] LABS: Alanine Aminotransferase < 5 U/L (0-33); Albumin Level 3.1 g/dL (3.5-5.2); Alkaline Phosphatase 32 U/L (35-105); Anion Gap 18.7 (5-19); Aspartate Amino Transferase 15 U/L (0-32); Blood Urea Nitrogen 13 mg/dL (8-23); Calcium 7.7 mg/dL (8.5-10.5); Carbon Dioxide 15 mmol/L (22-29); Chloride 109 mmol/L (98-107); Creatinine Clr Calc Pharmacy 35.9582; Globulin 2.8 g/dL (1.3-4.6); Glucose 114 mg/dL (65-115); Magnesium 1.6 mg/dL (1.7-2.3); Osmolality Calculated 289 mOsm/kg (285-295); Potassium 3.7 mmol/L (3.5-5.1); Sodium 139 mmol/L (136-145); Total Bilirubin 0.6 mg/dL (0.15-1.2); Total Protein 5.9 g/dL (6.6-8.7)
[2023-11-29] MEDS: aspirin 81 mg EC Tablet PO (08:40)
[2023-11-29] MEDS: atorvastatin 40 mg Tablet PO (08:41)
[2023-11-29 10:38] LABS: Bacillus cereus group Not Detected (NOT DETECT); Bacillus subtillis group Not Detected (NOT DETECT); Corynebacterium Not Detected (NOT DETECT); Cutibacterium acnes (P.acnes) Not Detected (NOT DETECT); Enterococcus Not Detected (NOT DETECT); Enterococcus faecalis Not Detected (NOT DETECT); Enterococcus faecium Not Detected (NOT DETECT); Lactobacillus species Not Detected (NOT DETECT); Listeria Not Detected (NOT DETECT); Listeria monocytogenes Not Detected (NOT DETECT); Micrococcus Not Detected (NOT DETECT); Pan Candida Not Detected (NOT DETECT); Pan Gram-Negative Not Detected (NOT DETECT); Staphylococcus epidermidis Not Detected (NOT DETECT); Staphylococcus lugdunensis Not Detected (NOT DETECT); Staphylococcus species Detected (NOT DETECT); Streptococcus agalactiae Not Detected (NOT DETECT); Streptococcus anginosus group Not Detected (NOT DETECT); Streptococcus pneumoniae Not Detected (NOT DETECT); Streptococcus pyogenes Not Detected (NOT DETECT); Streptococcus species Not Detected (NOT DETECT); mecA Not Detected (NOT DETECT); mecC Not Detected (NOT DETECT)
--- NOTE | 2023-11-29 10:53 | ECG_ITS ---
[facility] Test Date: 2023-11-29 Pat Name: Cristy Childers Department: Room: [facility]05 Gender: Female Automotive Brake Adjuster: : 1935 Requested By: Gemma Crews Order Number: [id number] Max MD: Betsy Linares M.D. Measurements Intervals [place] Rate: 92 P: 0 [place]: 0 QRS: -63 QRSD: 134 T: 40 QT: 415 QTc: 514 Interpretive Statements ATRIAL FIBRILLATION INDETERMINATE AXIS INTRAVENTRICULAR CONDUCTION DELAY [130+ ms QRS DURATION] ANTEROSEPTAL MYOCARDIAL INFARCTION , OF INDETERMINATE AGE [40+ ms Q WAVE IN V1-V4] Compared to ECG 11/28/2023 17:23:02 Indeterminate axis now present Intraventricular conduction delay now present Myocardial infarct finding still present Electronically Signed On 11-29-2023 18:03:18 POTATO SEED CUTTER by Betsy Linares M.D. [email or web address] general hospitalWISETIVIholzer health system.[employer]/store/[id number]
--- NOTE | 2023-11-29 13:20 | P.PN_ITS ---
Subjective 2 Subjective: Seen this morning. Patient quite perked up and talking smiling asking to drink water. She recognized her son. Son states that she is back to her baseline mental status. Patient says she feels well Able to provide a history at this time. She says that she has not had any chest pain or shortness of breath in the last few weeks. She feels great today. Unsure if she has had blood in stool before. However she says she has a long time ago and says she was given antibiotics for it?? This morning patient has had an episode of black tarry stool. Sample obtained which was positive for occult blood. Heparin drip has been discontinued Hemoglobin 13 on admission and now 11.9. No other evidence of gross bleed Lactic acid reduced down to 2.9. Magnesium 1.6. I had a detailed discussion with patient's son. In light of patient's episode of black tarry stool we may not be able to continue heparin drip to treat for her NSTEMI which may be due to a true cardiac event versus demand ischemia at this time. She does have a history of congestive heart failure from prior as per the daughter. Echo from this morning does show moderately severe mitral valve regurgitation, severe tricuspid regurgitation mild to moderate pulmonary valve regurgitation, moderate pulmonary hypertension. No gross wall motion abnormalities, EF 67%. EKGs have been nonischemic. Patient will definitely warrant further cardiac workup and we may be able to do a stress test at a later time. For now we will treat with aspirin 81 however hold off on heparin drip or Plavix. I will hold patient's Eliquis as well at this time. Son agrees with above management and understands to risk of bleeding with anticoagulation. I also told the patient's son that if patient is not having any chest pain or any other cardiac symptoms we may be able to complete a cardiac workup at a later time once the bleeding has resolved. I told him we will be monitoring her CBC today and if she has further drop in hemoglobin or has increased frequency of tarry stools we will get general surgery involved to have an EGD scheduled. For now we will start Protonix 40 twice daily and add sucralfate. Son is on board with the above plan and agrees to manage conservatively at this time. He says he does not want any invasive procedures and his mom would not want them either. This conversation was taken place in front of his mother. Patient drank water and started coughing right after. Will be ordering a speech swallow evaluation. Discussed this with patient's family as well. Lastly 1 out of 4 bottles of blood cultures positive for Staphylococcus species. Vitals/I&O/Wt Last Vital Signs Temp 98.7 F 11/29/23 00:00 Pulse 100 11/29/23 13:00 Resp 21 H 11/29/23 13:00 BP 138/99 11/29/23 13:00 Pulse Ox 100 11/29/23 07:00 O2 Del Method Room Air 11/28/23 17:15 11/28/23 11/29/23 11/29/23 22:59 06:59 14:59 Intake Total 710.417 / 3010.417 1730.567 / 4740.984 240 / 240 Output Total 1300 / 1300 550 / 1850 450 / 450 Balance -589.583 / 2678.823 8856.567 / 2890.984 -210 / -210 Weight last 48 hrs Weight 57.606 kg Weight 57.776 kg Weight 49.895 kg Physical Exam 2 Narrative: No acute distress Sitting up in bed appearing comfortable Normal S1-S2 Abdomen soft nontender Extremities unremarkable at this time Clear to auscultation bilaterally no wheezes no rhonchi Urinary Catheter Management: Bernal: Cath Placed During This Visit: yes Reason for Continuing Indwelling Catheter: Accurate Measurement of Urinary Output in Critically Ill Patients Urinary Catheter Date of Insertion: 11/28/23 Urinary Catheter Time of Insertion: 11:00 Data 11/29/23 06:04 11/29/23 06:04 Micro: Microbiology 11/28/23 11:55 Blood Culture - Preliminary Blood NEGATIVE TO DATE 11/28/23 10:56 Blood Culture - Preliminary Blood Staphylococcus species 11/28/23 10:56 Urine Culture - Preliminary Urine,Clean Catch 11/29/23 09:15 Occult Blood (FIT) - Final Stool Routine Collection A&P Assessment and plan (1) Hypertension: Qualifiers: Hypertension type: essential hypertension Qualified Code(s): I10 - Essential (primary) hypertension (2) GERD (gastroesophageal reflux disease): (3) Incontinence of urine: Qualifiers: Urinary Incontinence type: urge incontinence Qualified Code(s): N39.41 - Urge incontinence (4) Altered mental status: (5) Elevated lactic acid level: (6) UTI (urinary tract infection): (7) NSTEMI (non-ST elevated myocardial infarction): Plan #Altered mental status?resolved patient back to baseline. #UTI #Metabolic encephalopathy most likely secondary to UTI # NSTEMI, most likely demand ischemia, however complicated by presence of GI bleed. #History of hypertension, hyperlipidemia #Elevated lactic acidosis?improved. #History of GERD #Incontinent of urine #Upper GI bleed, melanotic stool ? UA mildly suggestive of UTI. All other workup has been negative. CT chest abdomen pelvis reviewed. Distended gallbladder. ? Will check for gallbladder ultrasound ? Trend troponins. Baseline troponin 25. EKG nonischemic ? Serial EKGs ? 6-hour troponin 100. Delta troponin 48. ? Start heparin drip, placed on aspirin. Continue atorvastatin 40 daily ? N.p.o. at this time. Discussed with nursing staff to do bedside swallow evaluation before feeding patient when she is more awake ? We will check serial EKGs ? Check echo for wall motion abnormalities ? Patient is DNR/DNI as per family. ? Placed on cefepime1 g twice daily for UTI. Patient did receive Vanco and Zosyn in the ER. ? Check urine culture ? Check blood cultures -Check speech swallow evaluation ? Trend lactic acid. Initial one 6.1. Place patient on normal saline 125 cc/h. Patient weighs 57 kg ? Will repeat lactic acid in 3 hours. She did receive 1 L normal saline bolus in ER. -Give additional 500 cc normal saline bolus. -Admit to ICU at this time for further monitoring. Today's plan 10/31/2023 - Bicarb is 15 ? Recheck lactic acid. Last night it was 2.9. Black tarry stool this morning. Patient on heparin drip which has been now discontinued ? Protonix 40 IV twice daily ? Sucralfate 1 g 4 times daily ? Continue to monitor CBC every 8 hours -Replete magnesium. Magnesium 2 g IV to be ordered ? Briefly curbside discussed with cardiology. Patient not a candidate for further cardiac interventions at this time. Since she is chest pain-free and is hemodynamically stable we may be able to do a stress test prior to discharge. ? I will consult general surgery for possible EGD - recheck lactic acid - check speech swallow eval DNR/DNI DVT prophylaxis: SCDS Attestations 2 Medical Necessity Statement*: Patient requires greater than 2 midnight stay for management of altered mental status Diagnoses Essential hypertension I10 Hypertension type: essential hypertension GERD (gastroesophageal reflux disease) K21.9 Urge incontinence of urine N39.41 Urinary Incontinence type: urge incontinence Altered mental status R41.82 Elevated lactic acid level R79.89 UTI (urinary tract infection) N39.0 NSTEMI (non-ST elevated myocardial infarction) I21.4
[2023-11-29] MEDS: pantoprazole 40 mg SDV IVP (13:25)
[2023-11-29] MEDS: magnesium sulfate premix 2 GM/50 ML PIGGYBACK IV (14:15)
[2023-11-29 16:11] LABS: Basophils % 0.2 %; Eosinophils % 0.1 %; Hematocrit 38.1 % (36-47); Lymphocytes # 0.9 10^3/uL (0.8-4.8); Lymphocytes % 8.3 %; Mean Corpuscular HGB Conc 31.2 g/dL (30-55); Mean Corpuscular Hemoglobin 27.5 pg (27-33); Mean Corpuscular Volume 88.2 fl (85-98); Mean Platelet Volume 11.7 fL (7.4-10.4); Monocytes # 1.2 10^3/uL (0.2-0.9); Monocytes % 10.7 %; Neutrophils # 8.93 10^3/uL (1.8-7.7); Neutrophils % 80.2 %; Nucleated Red Blood Cells % 0 %; Platelet Count 177 10^3/cmm (157-399); Red Blood Count 4.32 10^6/uL (3.85-5.65); Red Cell Distribution Width 15.7 % (12.1-15.1); White Blood Count 11.14 10^3/uL (3.29-11.43)
--- NOTE | 2023-11-29 16:21 | PC.NURSE ---
Report called to Med-surg and given to Hetal
[2023-11-29 16:29] LABS: Lactic Sepsis W/Reflex 2.6 mmol/L (0.5-2.2)
--- NOTE | 2023-11-29 16:48 | PC.NURSE ---
Transferred pt via wheelchair to room 276-1 accompanied by family. Pt tolerated well.
[2023-11-29] MEDS: sucralfate 1 gm Tablet PO ×2 (17:25→21:46)
[2023-11-29 17:51] LABS: Reflex Lactate Order REFLEX LACTIC ORDERD
--- NOTE | 2023-11-29 17:55 | USCV_ITS ---
Cristy Childers Age: 87 Gender: F : 1935 Exam Date: 11/29/2023 03:20 Ordering Phys: Gemma Crews MD Technologist: CRUZITO Exam Location: [facility] [place] Indication: elevated cardiac markers, altered mental status, patient is unable to respond to questions. BP: 103 / 67 HR: 83 Rhythm: Atrial fibrillation Technical Quality: Adequate MEASUREMENTS (Male / Female) Normal Values 2D ECHO LV Diastolic Diameter PLAX 4.9 cm 4.2 - 5.9 / 3.9 - 5.3 cm IVS Diastolic Thickness 0.8 cm 0.6 - 1.0 / 0.6 - 0.9 cm IVS Systolic Thickness 1.4 cm LVPW Diastolic Thickness 1.1 cm 0.6 - 1.0 / 0.6 - 0.9 cm LVPW Systolic Thickness 1.3 cm LVOT Diameter 2.1 cm LV Ejection Fraction 2D Teich 43.7 % LV Ejection Fraction MOD 2C 67.0 % LV Ejection Fraction 2C AL 0.0 % LA Diameter 4.8 cm Aorta at Sinotubular Diameter 2.3 cm IVC Diameter 2.4 cm M-MODE LA Ao Ratio MM 2.1 AV Cusp Separation MM 1.3 cm DOPPLER AV Peak Velocity 132.0 cm/s LVOT Peak Velocity 70.0 cm/s AV Area Cont Eq vti 2.0 cm squared AV Area Cont Eq pk 1.8 cm squared MV Peak Velocity 131.0 cm/s MV Area PHT 3.6 cm squared Mitral E to A Ratio 149.3 TV Peak Velocity 340.0 cm/s TR Peak Velocity 358.0 cm/s TR Peak Gradient 51.3 mmHg TV Peak E Velocity 73.0 cm/s Right Atrial Pressure 15.0 mmHg Pulmonary Artery Systolic Pressu 66.3 mmHg FINDINGS Left Ventricle Normal left ventricular size and systolic function, EF 67%.no regional wall motion abnormalities. Right Ventricle Normal right ventricular size and systolic function. Right Atrium Moderately increased right atrial size. Left Atrium Moderately increased left atrial size. Mitral Valve Moderately severe mitral valve regurgitation. Aortic Valve Thickened aortic valve. Mild aortic valve regurgitation. Tricuspid Valve Possibly severe tricuspid regurgitation Pulmonic Valve Yilh-dg-lnabftqf pulmonary valve regurgitation. Pericardium No pericardial effusion. Aorta Normal aortic annulus size. IVC Dilated IVC with decreased respiratory variation. CONCLUSIONS Normal left ventricular size and systolic function, EF 67%. No regional wall motion abnormalities. Moderate biatrial enlargement Moderately severe mitral valve regurgitation. Possibly severe tricuspid regurgitation. Lvsy-jt-onqionej pulmonary valve regurgitation. Thickened aortic valve. Mild aortic valve regurgitation. Moderate pulmonary hypertension. Estimated pulmonary artery peak systolic pressure of 66 mm of Hg There is no pericardial effusion. There are no intracardiac masses. No similar previous studies are available for comparison Dr Betsy Linares MD FAC (Electronically Signed) Final Date: 29 November 2023 09:47 S
[2023-11-29 19:30] LABS: Lactic Acid level (Lactate) 4.8 mmol/L (0.5-2.2)
[2023-11-29] MEDS: metoprolol tartrate 25 mg Tablet PO (21:46)
[2023-11-29] MEDS: trazodone 50 mg Tablet PO (21:46)
--- NOTE | 2023-11-29 22:51 | PC.NURSE ---
Day shift nurse, Hetal RN, told this nurse that patient was being transferred to ICU and called report to ICU but there wasn't a transfer order. Hetal said she would contact primary physician regarding her lactic acid level and needing transfer orders but said she didn't answer because it was after 7. Dr. Crews put in a transfer order but this nurse did not see transfer orders pop up because ICU nurse already processed transfer. This nurse contacted night assistant physician, Dr. Saavedra, and he reviewed patient's chart and said to give her first dose of metoprolol tonight, recheck hemoglobin, she can stay up on medsurg tonight and monitor for change in condition. This nurse then contacted him again when we realized she did have transfer orders to ICU and he changed her orders back to medsurg.
[2023-11-30] VITALS (29 sets, daily range): BP systolic 120–157; BP diastolic 79–110; PULSE 67–117; RESP 16–38; TEMP 36.4–36.9; O2SAT 91–98
[2023-11-30] MEDS: cefepime 1,000 MG in sodium chloride 0.9% (plus) 50 ML 100 MG IV ×2 (02:55→15:19)
[2023-11-30] MEDS: sodium chloride 0.9% 1,000 ML 125 ML IV ×2 (02:55→12:12)
[2023-11-30] MEDS: sucralfate 1 gm Tablet PO ×4 (06:21→21:36)
[2023-11-30] MEDS: atorvastatin 40 mg Tablet PO (08:43)
[2023-11-30] MEDS: aspirin 81 mg EC Tablet PO (08:43)
[2023-11-30] MEDS: metoprolol tartrate 25 mg Tablet PO ×2 (08:43→17:13)
--- NOTE | 2023-11-30 08:46 | ECG_ITS ---
[facility] Test Date: 2023-11-30 Pat Name: Cristy Childers Department: Room: 276 Gender: Female Retail Shift Supervisor: : 1935 Requested By: Gemma Crews Order Number: [id number] Max MD: Jus Camacho M.D. Measurements Intervals [place] Rate: 113 P: 0 NE: 0 QRS: -83 QRSD: 133 T: 64 QT: 376 QTc: 516 Interpretive Statements ATRIAL FIBRILLATION WITH RAPID VENTRICULAR RESPONSE INTRAVENTRICULAR CONDUCTION DELAY [130+ ms QRS DURATION] INFERIOR MYOCARDIAL INFARCTION , PROBABLY OLD [40+ ms Q WAVE AND/OR ST/T ABNORMALITY IN II/aVF] ANTEROSEPTAL MYOCARDIAL INFARCTION , OF INDETERMINATE AGE [40+ ms Q WAVE IN V1-V4] Compared to ECG 11/29/2023 10:53:39 Indeterminate axis no longer present Myocardial infarct finding still present Electronically Signed On 11-30-2023 10:06:28 MESSENGER OFFICE by Jus Camacho M.D. [id number]
[2023-11-30 09:06] LABS: Basophils % 0.1 %; Hematocrit 35.5 % (36-47); Lymphocytes # 1.1 10^3/uL (0.8-4.8); Lymphocytes % 8.5 %; Mean Corpuscular HGB Conc 32.1 g/dL (30-55); Mean Corpuscular Hemoglobin 27.7 pg (27-33); Mean Corpuscular Volume 86.4 fl (85-98); Mean Platelet Volume 11.2 fL (7.4-10.4); Monocytes # 1.6 10^3/uL (0.2-0.9); Monocytes % 12.7 %; Neutrophils # 9.83 10^3/uL (1.8-7.7); Nucleated Red Blood Cells % 0 %; Platelet Count 188 10^3/cmm (157-399); Red Blood Count 4.11 10^6/uL (3.85-5.65); Red Cell Distribution Width 15.9 % (12.1-15.1)
[2023-11-30 09:23] LABS: Blood Urea Nitrogen 13 mg/dL (8-23); Carbon Dioxide 14 mmol/L (22-29); Chloride 103 mmol/L (98-107); Creatinine Clr Calc Pharmacy 40.9408; Glucose 182 mg/dL (65-115); Magnesium 2.1 mg/dL (1.7-2.3); Osmolality Calculated 285 mOsm/kg (285-295); Sodium 135 mmol/L (136-145)
[2023-11-30 09:37] LABS: Anion Gap 21.6 (5-19); Potassium 3.6 mmol/L (3.5-5.1)
[2023-11-30 09:41] LABS: Troponin(5th) Baseline 123 ng/L (0-10)
--- NOTE | 2023-11-30 10:33 | ECG_ITS ---
[facility] Test Date: 2023-11-30 Pat Name: Cristy Childers Department: Room: 276 Gender: Female Calibration Specialist: : 1935 Requested By: Gemma Crews Order Number: [id number] Max MD: Jus Camacho M.D. Measurements Intervals [place] Rate: 113 P: 0 [place]: 0 QRS: -63 QRSD: 127 T: 74 QT: 378 QTc: 519 Interpretive Statements ATRIAL FIBRILLATION WITH RAPID VENTRICULAR RESPONSE LEFT AXIS DEVIATION [QRS AXIS < -30] ANTEROSEPTAL MYOCARDIAL INFARCTION , OF INDETERMINATE AGE [40+ ms Q WAVE IN V1-V4] Compared to ECG 11/30/2023 08:46:20 Left-axis deviation now present Intraventricular conduction delay no longer present Myocardial infarct finding still present Electronically Signed On 12-02-2023 9:40:24 GLUE JOINTER FEEDER by Jus Camacho M.D. [id number]
--- NOTE | 2023-11-30 10:38 | PM.CONSULT ---
Providers/Reason For Consult Consulting Physician/Specialty*: General surgery Reason for Consult*: Upper GI bleeding Attending Physician: Gmema Crews MD Primary Care Provider: Adriana Gramajo DO History of Present Illness History of Present Illness Cristy Childers is a 87 year old female who was admitted to the hospital with a probable NSTEMI, during hospital stay she was started on anticoagulation after which she developed black and tarry stools. Over the last 24 hours patient has had several episode of black and tarry stools, no nausea no vomiting. Per discussion with medical team with cardiology they would like to maintain the patient anticoagulation and possible plan for a cardiac cath in the future and therefore they have requested GI clearance. On my interview with the patient this morning she appears frail but does not have any significant complaints. Review of Systems General: Reports: 10 or more systems reviewed and unremarkable except in HPI and below Medications/Allergies Home Medications Medication Instructions Recorded Confirmed Last Taken Type acetaminophen 500 mg tablet 1,000 mg PO PRN 10/05/19 11/28/23 10/07/19 14:00 History (Tylenol Extra Strength) aspirin 325 mg tablet 325 mg PO DAILY PRN UNKNOWN 10/05/19 11/28/23 1 Week Ago History ~10/01/19 calcium carbonate 600 mg calcium 600 mg PO QPM 10/05/19 11/28/23 11/27/23 History (1,500 mg) tablet cholecalciferol (vitamin D3) 25 1,000 unit PO QPM 10/05/19 11/28/23 11/27/23 History mcg (1,000 unit) capsule (Vitamin D3) nitroglycerin 0.4 mg sublingual 0.4 mg sublingual Q5M PRN Chest 10/05/19 11/28/23 Unknown History tablet (Nitrostat) Pain omeprazole magnesium 20 mg 20 mg PO DAILY 10/05/19 11/28/23 11/27/23 History capsule,delayed release calcitonin (salmon) 200 See Rx Instructions .Route .COMPLEX 08/24/20 11/28/23 11/27/23 History unit/actuation nasal spray oxycodone-acetaminophen 10 mg-325 1 tab PO Q4H PRN Pain 08/24/20 11/28/23 08/24/20 08:00 History mg tablet (Percocet) polyethylene glycol 3350 17 17 g PO DAILY PRN Constipation 08/24/20 11/28/23 Unknown History gram/dose oral powder (Miralax) apixaban 2.5 mg tablet (Eliquis) 2.5 mg PO BID 11/28/23 11/28/23 11/27/23 History atorvastatin 20 mg tablet 20 mg PO DAILY 11/28/23 11/28/23 11/27/23 History diphenoxylate-atropine 2.5 1 tab PO Q6H PRN diahrrea 11/28/23 11/28/23 Unknown History mg-0.025 mg tablet furosemide 40 mg tablet 40 mg PO QAM PRN Edema 11/28/23 11/28/23 Unknown History losartan 25 mg tablet 12.5 mg PO DAILY 11/28/23 11/28/23 Unknown History metoprolol tartrate 25 mg tablet 25 mg PO BID 11/28/23 11/28/23 11/27/23 History mirtazapine 7.5 mg tablet 7.5 mg PO BEDTIME 11/28/23 11/28/23 11/27/23 History potassium chloride 10 mEq 20 meq PO DAILY 11/28/23 11/28/23 Unknown History tablet,extended release trazodone 50 mg tablet 50 mg PO BEDTIME 11/28/23 11/28/23 11/27/23 History zinc gluconate 50 mg tablet 50 mg PO QPM 11/28/23 11/28/23 11/27/23 History Allergies Allergy/AdvReac Type Severity Reaction Status Date / Time clarithromycin Allergy Intermediate Hives Verified 11/28/23 10:19 Current Medications Generic Name Dose Route Start Last Admin Trade Name Herreraq PRN Reason Stop Dose Admin Aspirin 81 mg 11/28/23 18:10 11/30/23 08:43 Aspirin 81 Mg Ec Tablet PO 81 mg DAILY DINH Administration Atorvastatin Calcium 40 mg 11/29/23 09:00 11/30/23 08:43 Atorvastatin 40 Mg Tablet PO 40 mg DAILY DINH Administration Sodium Chloride 1,000 mls @ 125 mls/hr 11/28/23 13:45 11/30/23 02:55 Sodium Chloride 0.9% IV 125 mls/hr .Q8H DINH Administration Cefepime HCl 1,000 mg/ Sodium 50 mls @ 100 mls/hr 11/28/23 13:45 11/30/23 04:10 Chloride IV Infused Q12H DINH Infusion Protocol Metoprolol Tartrate 25 mg 11/29/23 21:19 11/30/23 08:43 Metoprolol Tartrate 25 Mg Tablet PO 25 mg BID DINH Administration Pantoprazole Sodium 40 mg 11/28/23 13:45 11/29/23 13:25 Pantoprazole 40 Mg Sdv IVP 40 mg Q24H DINH Administration Sucralfate 1 gm 11/29/23 17:00 11/30/23 06:21 Sucralfate 1 Gm Tablet PO 1 gm AC&BEDTIME DINH Administration Trazodone HCl 50 mg 11/28/23 21:00 11/29/23 21:46 Trazodone 50 Mg Tablet PO 50 mg BEDTIME DINH Administration PFSH Acute PFSH: Medical History GERD (gastroesophageal reflux disease) Heart disease Hyperlipidemia Hypertension Multiple myeloma Osteoporosis Surgical History History of vaginal surgery (10/13/19) Colpocleisis with uterus in place. Performed by Dr. Conde at [facility]. S/P tonsillectomy and adenoidectomy Performed in [place], [place] S/P tubal ligation Performed at [facility] and [place], [place] Family History Mother Hypertension Hyperlipidemia Stroke Father Hypertension Sister Hypertension Diabetes Hyperlipidemia Unknown Heart disease Multiple family members Social History Smoking and tobacco/nicotine status: never used tobacco/nicotine Alcohol intake: never Substance/Drug Use: never Additional social history: Well balanced diet Vitals/I&O/Wt Last Vital Signs Temp 97.6 F 11/30/23 10:00 Pulse 117 H 11/30/23 10:00 Resp 18 11/30/23 10:00 BP 151/85 11/30/23 10:00 Pulse Ox 92 11/30/23 08:04 O2 Del Method Room Air 11/30/23 08:04 11/29/23 11/30/23 11/30/23 22:59 06:59 14:59 Intake Total 170 / 1460 1530 / 2990 480 / 480 Output Total 475 / 925 Balance 170 / 1010 1055 / 2065 480 / 480 Weight last 48 hrs Weight 130 lb 7 oz Weight 127 lb Weight 127 lb 6 oz Physical Exam Narrative: General : Patient is frail Head : Normal cephalic, a-traumatic. Nose : Mucous membranes are without erythema. Lungs : Equal chest rise bilaterally, no use of accessory muscles, trachea is midline. CV : Rate and rhythm are normal. Abdomen : Soft, ND, NT, no g/r/m Urinary Catheter Management: Bernal: Cath Placed During This Visit: yes Reason for Continuing Indwelling Catheter: Accurate Measurement of Urinary Output in Critically Ill Patients Urinary Catheter Date of Insertion: 11/28/23 Urinary Catheter Time of Insertion: 11:00 Data 11/30/23 08:50 11/30/23 08:50 Micro: Microbiology 11/28/23 11:55 Blood Culture - Preliminary Blood NEGATIVE TO DATE 11/28/23 10:56 Blood Culture - Preliminary Blood Staphylococcus species 11/28/23 10:56 Urine Culture - Preliminary Urine,Clean Catch 11/29/23 09:15 Occult Blood (FIT) - Final Stool Routine Collection A&P Assessment and plan (1) Upper GI bleeding: Plan After complete history, physical examination and review of all available clinical data the following is my assessment. I have explained to the patient and family member (daughter with DPOA) that in order to continue with medical treatment and GI clearance have been requested for evaluation for possible GI bleeding and therapeutic intervention to allow the patient to remain on anticoagulation. I have discussed all the risk and benefits of the upper endoscopy including the risk of perforation of the esophagus stomach or duodenum requiring surgical intervention and transfer to higher level of care, possibility of rebleeding, possibility of lack of diagnosis even after endoscopy, injury to soft tissue of the mouth and pharynx, and I have also explained that there is other anesthesia related complications that she will be discussed with anesthesiology provider before proceeding. I had extensive discussion with the family, the patient is DNR and DNI and while she is willing to proceed with endoscopy she wants to remain DNR DNI during the procedure. I have explained that due to her significant comorbidities there is a real risk of during intervention. Patient and family member agree with these risks and wished to proceed. I will proceed with upper endoscopy tomorrow morning, please keep patient n.p.o. after midnight in the interim she can continue heparin drip as indicated by cardiology but we will need to hold heparin drip at midnight for the procedure. Coding Level of Care Code 78209 Diagnoses Upper GI bleeding K92.2
--- NOTE | 2023-11-30 10:40 | ECG_ITS ---
[facility] Test Date: 2023-11-30 Pat Name: Cristy Childers Department: Room: [facility] Gender: Female Retail Business Development Manager: : 1935 Requested By: Gemma Crews Order Number: [id number] Max MD: Jus Camacho M.D. Measurements Intervals [place] Rate: 105 P: 0 [place]: 0 QRS: -59 QRSD: 126 T: 66 QT: 377 QTc: 498 Interpretive Statements ATRIAL FIBRILLATION WITH RAPID VENTRICULAR RESPONSE LEFT AXIS DEVIATION [QRS AXIS < -30] ANTEROSEPTAL MYOCARDIAL INFARCTION , OF INDETERMINATE AGE [40+ ms Q WAVE IN V1-V4] Compared to ECG 11/30/2023 08:46:20 Left-axis deviation now present Intraventricular conduction delay no longer present Myocardial infarct finding still present Electronically Signed On 12-02-2023 9:40:28 CYANIDE POT TENDER by Jus Camacho M.D. [id number]
[2023-11-30] MEDS: heparin drip 25,000 UNIT/500 ML PREMIX 16.5700000000000003 UNIT IV (12:05)
--- NOTE | 2023-11-30 12:53 | P.PN_ITS ---
Subjective 2 Subjective: Reported by nursing staff that patient had another episode of black tarry stool overnight. Hemoglobin has remained stable 11.4 range. WBC 12.6. Lactic acid again elevated at 4.8 yesterday. Patient was given fluids. Denies any abdominal pain. Today she says I remembered that I have been having some chest pain that comes and goes for the last few days prior to hospitalization. Also says that I have been nauseous. 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 Troponin was obtained which was 123 with 2-hour troponin of 137. Delta of 14. Daughter at bedside. Thiamine level pending ? Discussed in detail with patient's daughter. Patient at high risk of deterioration including cardiac arrhythmia leading to secondary to NSTEMI. Discussed with cardiology as well. Patient will need a stress test versus angiogram but will require GI clearance prior to pursuing that. Family understands the situation and would like to proceed with EGD and they do understand the risk of anesthesia. Patient has a risk of deterioration during procedure as well and family understands. They would like to keep her a DNR/DNI but would like to proceed with EGD at this time. Vitals/I&O/Wt Last Vital Signs Temp 97.6 F 11/30/23 10:00 Pulse 100 11/30/23 12:36 Resp 34 H 11/30/23 12:36 BP 122/94 11/30/23 12:36 Pulse Ox 97 11/30/23 12:36 O2 Del Method Room Air 11/30/23 12:36 11/29/23 11/30/23 11/30/23 22:59 06:59 14:59 Intake Total 170 / 1460 1530 / 2990 1480 / 1480 Output Total 475 / 925 Balance 170 / 1010 1055 / 2065 1480 / 1480 Weight last 48 hrs Weight 59.165 kg Weight 57.606 kg Weight 57.776 kg Physical Exam 2 Narrative: No acute distress Sitting up in bed appearing comfortable Normal S1-S2 Abdomen soft nontender Extremities unremarkable at this time Clear to auscultation bilaterally no wheezes no rhonchi daughter at bedside says she is slightly nauseated Urinary Catheter Management: Bernal: Cath Placed During This Visit: yes Reason for Continuing Indwelling Catheter: Accurate Measurement of Urinary Output in Critically Ill Patients Urinary Catheter Date of Insertion: 11/28/23 Urinary Catheter Time of Insertion: 11:00 Data 11/30/23 08:50 11/30/23 08:50 Micro: Microbiology 11/28/23 10:56 Urine Culture - Preliminary Urine,Clean Catch Yeast species 11/28/23 11:55 Blood Culture - Preliminary Blood NEGATIVE TO DATE 11/28/23 10:56 Blood Culture - Preliminary Blood Staphylococcus species 11/29/23 09:15 Occult Blood (FIT) - Final Stool Routine Collection A&P Assessment and plan (1) Hypertension: Qualifiers: Hypertension type: essential hypertension Qualified Code(s): I10 - Essential (primary) hypertension (2) GERD (gastroesophageal reflux disease): (3) Incontinence of urine: Qualifiers: Urinary Incontinence type: urge incontinence Qualified Code(s): N39.41 - Urge incontinence (4) Altered mental status: (5) Elevated lactic acid level: (6) UTI (urinary tract infection): (7) NSTEMI (non-ST elevated myocardial infarction): Plan #Altered mental status?resolved patient back to baseline. #UTI #Metabolic encephalopathy most likely secondary to UTI # NSTEMI, most likely demand ischemia, however complicated by presence of GI bleed. #History of hypertension, hyperlipidemia #Elevated lactic acidosis?improved. #History of GERD #Incontinent of urine #Upper GI bleed, melanotic stool ? UA mildly suggestive of UTI. All other workup has been negative. CT chest abdomen pelvis reviewed. Distended gallbladder. ? Will check for gallbladder ultrasound ? Trend troponins. Baseline troponin 25. EKG nonischemic ? Serial EKGs ? 6-hour troponin 100. Delta troponin 48. ? Start heparin drip, placed on aspirin. Continue atorvastatin 40 daily ? N.p.o. at this time. Discussed with nursing staff to do bedside swallow evaluation before feeding patient when she is more awake ? We will check serial EKGs ? Check echo for wall motion abnormalities ? Patient is DNR/DNI as per family. ? Placed on cefepime1 g twice daily for UTI. Patient did receive Vanco and Zosyn in the ER. ? Check urine culture ? Check blood cultures -Check speech swallow evaluation ? Trend lactic acid. Initial one 6.1. Place patient on normal saline 125 cc/h. Patient weighs 57 kg ? Will repeat lactic acid in 3 hours. She did receive 1 L normal saline bolus in ER. -Give additional 500 cc normal saline bolus. -Admit to ICU at this time for further monitoring. Today's plan 11/01/2023 -Bicarb 14 today. Lactic acid last night 4.8. ? Lactic acidosis improved with IV fluids but elevates again. ? Patient is slightly nauseous this morning. She is also poor historian. Denies any abdominal pain. Abdominal exam is also benign. Had another episode of small amount of tarry stool overnight. ? I will go ahead and check CTA abdomen pelvis to rule out ischemic bowel although my suspicion is low ? I have ordered a thiamine level. Patient may be thiamine deficient causing a lactic acidosis. ?High anion gap metabolic acidosis secondary to lactic acidosis. Unclear etiology at this time. ? Patient to go for EGD in the morning. Family and patient understand the risks and benefits including the risk of . They would like to remain DNR/DNI. ? Protonix 40 IV twice daily ? Sucralfate 1 g 4 times daily -Trend another troponin series. Delta +14 at 2 hours from this morning. ? Cardiology notified. Continue baby aspirin. Continue on heparin drip with close monitoring on hemoglobin. ? Plavix also recommended by cardiology however general surgery would like to hold off on it due to EGD in AM. ? I informed the family of the above ? Patient will need cardiac angiogram versus stress test. Will have to see if patient is able to tolerate anticoagulation. ? Cardiology consulted. ? For A-fib she has been rate controlled with metoprolol 25 twice daily for now. ? Holding home Eliquis at this time ? Family understands the risks involved in patient's case. ?Speech swallow evaluation completed. Minced and moist diet ordered ? N.p.o. at midnight for EGD in a.m. DNR/DNI DVT prophylaxis: SCDS Transfer patient to cardiac stepdown unit. Attestations 2 Medical Necessity Statement*: Patient requires greater than 2 midnight stay for management of altered mental status Diagnoses Essential hypertension I10 Hypertension type: essential hypertension GERD (gastroesophageal reflux disease) K21.9 Urge incontinence of urine N39.41 Urinary Incontinence type: urge incontinence Altered mental status R41.82 Elevated lactic acid level R79.89 UTI (urinary tract infection) N39.0 NSTEMI (non-ST elevated myocardial infarction) I21.4
--- NOTE | 2023-11-30 13:01 | CTR_ITS ---
PROCEDURE INFORMATION: Exam: CTA Abdomen and Pelvis With Contrast Exam date and time: 11/30/2023 2:29 PM Age: 87 years old Clinical indication: Abnormal findings; Other: Lactic acid elevated; Additional info: R/O ischemic bowel, lactic acid elevated TECHNIQUE: Imaging protocol: Computed tomographic angiography of the abdomen and pelvis with contrast. Exam focused on the arteries. 3D rendering (Not supervised by radiologist): MIP and/or 3D reconstructed images were created by the technologist. Radiation optimization: All CT scans at this facility use at least one of these dose optimization techniques: automated exposure control; mA and/or kV adjustment per patient size (includes targeted exams where dose is matched to clinical indication); or iterative reconstruction. Contrast material: OMNI 350; Contrast volume: 100 ml; Contrast route: INTRAVENOUS (IV); COMPARISON: CT chest abdpel w/*[id number] 11/28/2023 1:04 PM RADIATION DOSE METRICS: Total DLP (mGy-cm): 531.49 FINDINGS: Pleural spaces: Bilateral moderate pleural effusions with lower lobe atelectasis. Heart: There is mild cardiomegaly. Reflux of contrast into the IVC and hepatic vein, with dilated right atrium. Coronary arteries: Moderate coronary artery calcifications. Diaphragm: Large hiatal hernia. Aorta: No aortic aneurysm. No aortic dissection. Celiac trunk and mesenteric arteries: Calcified atheromas at the origin of the superior mesenteric artery but no significant stenosis. Renal arteries: Calcified atheromas at the origin of the right renal artery but no significant stenosis. Right iliac arteries: No occlusion or significant stenosis. Left iliac arteries: No occlusion or significant stenosis. Liver: There are calcified granulomas of the liver. Gallbladder and bile ducts: Unremarkable. No calcified stones. No ductal dilation. Pancreas: There is new fat stranding surrounding the tail of the pancreas and body of the pancreas. No collections. Spleen: There are calcified splenic granulomas. Adrenal glands: Unremarkable. No mass. Kidneys and ureters: Scattered bilateral tiny renal cysts measuring up to 6 mm in the right kidney. Stomach and bowel: Unremarkable. No obstruction. No mucosal thickening. Appendix: No evidence of appendicitis. Intraperitoneal space: Unremarkable. No free air. No significant fluid collection. Lymph nodes: Unremarkable. No enlarged lymph nodes. Urinary bladder: Bernal catheter in the bladder which is underdistended. Reproductive: Unremarkable as visualized. Bones/joints: Mild degenerative of bilateral sacroiliac joints and symphysis pubis. Chondrocalcinosis of the symphysis pubis. Redemonstrated the old right superior and inferior pubic rami fractures. There is mild curvature of the lumbar spine convex to the left. Vertebroplasty at T12. There is mild anterolisthesis of L5 over S1. Demineralization visualized bones. Mild loss height L3 body. Multilevel posterior osteophyte disc complex, most pronounced at L4-L5 causing moderate thecal compression. Soft tissues: There is a fat containing umbilical hernia. Other findings: There are vascular calcifications. There is breathing related motion artifact. Mild amount of fluid in the pelvis. Calcified atheromas of bilateral internal iliac arteries causing mild stenosis. CT/CT angio abdomen pelvis [id number] IMPRESSION: 1. Examination is degraded by motion artifact. 2. Findings of interstitial pancreatitis. No collections. 3. Over distended gallbladder. 4. Bilateral pleural effusions with reflux of contrast into the IVC suggestive of congestive heart failure. 5. Large hiatal hernia with no bowel obstruction. 6. Mild amount of free fluid pelvis.
--- NOTE | 2023-11-30 13:15 | PM.CONSULT ---
Providers/Reason For Consult Consulting Physician/Specialty*: Jus Camacho MD/ Cardiology Reason for Consult*: Troponin elevation Requesting Physician: Dr Crews Attending Physician: Gemma Crews MD Primary Care Provider: Adriana Gramajo DO History of Present Illness History of Present Illness Cristy Childers is a 87 year old female who is quite frail with past medical history of hypertension hyperlipidemia, dementia who presented to hospital with altered mental status. She had black tarry stool and fatigue as well. Cardiology was consulted as troponins were elevated. On my history taking, patient states she has some abdominal discomfort. Denies chest pain today. Her echo shows normal LV systolic function with moderate to severe mitral regurgitation and severe tricuspid regurgitation. EKG not showing ischemic changes. However she is in atrial fibrillation. Review of Systems General: Reports: 10 or more systems reviewed and unremarkable except in HPI and below Card: Denies: chest pain GI: Reports: abdominal pain Medications/Allergies Home Medications Medication Instructions Recorded Confirmed Last Taken Type acetaminophen 500 mg tablet 1,000 mg PO PRN 10/05/19 11/28/23 10/07/19 14:00 History (Tylenol Extra Strength) aspirin 325 mg tablet 325 mg PO DAILY PRN UNKNOWN 10/05/19 11/28/23 1 Week Ago History ~10/01/19 calcium carbonate 600 mg calcium 600 mg PO QPM 10/05/19 11/28/23 11/27/23 History (1,500 mg) tablet cholecalciferol (vitamin D3) 25 1,000 unit PO QPM 10/05/19 11/28/23 11/27/23 History mcg (1,000 unit) capsule (Vitamin D3) nitroglycerin 0.4 mg sublingual 0.4 mg sublingual Q5M PRN Chest 10/05/19 11/28/23 Unknown History tablet (Nitrostat) Pain omeprazole magnesium 20 mg 20 mg PO DAILY 10/05/19 11/28/23 11/27/23 History capsule,delayed release calcitonin (salmon) 200 See Rx Instructions .Route .COMPLEX 08/24/20 11/28/23 11/27/23 History unit/actuation nasal spray oxycodone-acetaminophen 10 mg-325 1 tab PO Q4H PRN Pain 08/24/20 11/28/23 08/24/20 08:00 History mg tablet (Percocet) polyethylene glycol 3350 17 17 g PO DAILY PRN Constipation 08/24/20 11/28/23 Unknown History gram/dose oral powder (Miralax) apixaban 2.5 mg tablet (Eliquis) 2.5 mg PO BID 11/28/23 11/28/23 11/27/23 History atorvastatin 20 mg tablet 20 mg PO DAILY 11/28/23 11/28/23 11/27/23 History diphenoxylate-atropine 2.5 1 tab PO Q6H PRN diahrrea 11/28/23 11/28/23 Unknown History mg-0.025 mg tablet furosemide 40 mg tablet 40 mg PO QAM PRN Edema 11/28/23 11/28/23 Unknown History losartan 25 mg tablet 12.5 mg PO DAILY 11/28/23 11/28/23 Unknown History metoprolol tartrate 25 mg tablet 25 mg PO BID 11/28/23 11/28/23 11/27/23 History mirtazapine 7.5 mg tablet 7.5 mg PO BEDTIME 11/28/23 11/28/23 11/27/23 History potassium chloride 10 mEq 20 meq PO DAILY 11/28/23 11/28/23 Unknown History tablet,extended release trazodone 50 mg tablet 50 mg PO BEDTIME 11/28/23 11/28/23 11/27/23 History zinc gluconate 50 mg tablet 50 mg PO QPM 11/28/23 11/28/23 11/27/23 History Allergies Allergy/AdvReac Type Severity Reaction Status Date / Time clarithromycin Allergy Intermediate Hives Verified 11/28/23 10:19 Current Medications Generic Name Dose Route Start Last Admin Trade Name Freq PRN Reason Stop Dose Admin Aspirin 81 mg 11/28/23 18:10 11/30/23 08:43 Aspirin 81 Mg Ec Tablet PO 81 mg DAILY DINH Administration Atorvastatin Calcium 40 mg 11/29/23 09:00 11/30/23 08:43 Atorvastatin 40 Mg Tablet PO 40 mg DAILY DINH Administration Sodium Chloride 1,000 mls @ 125 mls/hr 11/28/23 13:45 11/30/23 12:13 Sodium Chloride 0.9% IV Not Given .Q8H DINH Cefepime HCl 1,000 mg/ Sodium 50 mls @ 100 mls/hr 11/28/23 13:45 11/30/23 04:10 Chloride IV Infused Q12H DINH Infusion Protocol Heparin Sodium/Sodium Chloride 25,000 unit in 500 mls @ 0 mls/hr 11/30/23 10:00 11/30/23 12:05 Heparin Drip IV 14 unit/kg/hr .Q0M DINH 16.57 mls/hr Administration Protocol Per Protocol Sodium Chloride 1,000 mls @ 30 mls/hr 11/30/23 10:08 11/30/23 12:12 Sodium Chloride 0.9% IV 12/01/23 10:07 125 mls/hr .Q24H ONE Administration Metoprolol Tartrate 25 mg 11/29/23 21:19 11/30/23 08:43 Metoprolol Tartrate 25 Mg Tablet PO 25 mg BID DINH Administration Pantoprazole Sodium 40 mg 11/28/23 13:45 11/29/23 13:25 Pantoprazole 40 Mg Sdv IVP 40 mg Q24H DINH Administration Sucralfate 1 gm 11/29/23 17:00 11/30/23 12:16 Sucralfate 1 Gm Tablet PO 1 gm AC&BEDTIME DINH Administration Trazodone HCl 50 mg 11/28/23 21:00 11/29/23 21:46 Trazodone 50 Mg Tablet PO 50 mg BEDTIME DINH Administration PFSH Acute PFSH: Medical History GERD (gastroesophageal reflux disease) Heart disease Hyperlipidemia Hypertension Multiple myeloma Osteoporosis Surgical History History of vaginal surgery (10/13/19) Colpocleisis with uterus in place. [place] [facility] [place]illectomy and adenoidectomy Performed in [place], [place] S/P tubal ligation Performed at [facility] and [place], [place] Family History Mother Hypertension Hyperlipidemia Stroke Father Hypertension Sister Hypertension Diabetes Hyperlipidemia Unknown Heart disease Multiple family members Social History Smoking and tobacco/nicotine status: never used tobacco/nicotine Alcohol intake: never Substance/Drug Use: never Additional social history: Well balanced diet Vitals/I&O/Wt Last Vital Signs Temp 97.6 F 11/30/23 10:00 Pulse 100 11/30/23 12:36 Resp 34 H 11/30/23 12:36 BP 122/94 11/30/23 12:36 Pulse Ox 97 11/30/23 12:36 O2 Del Method Room Air 11/30/23 12:36 11/29/23 11/30/23 11/30/23 22:59 06:59 14:59 Intake Total 170 / 1460 1530 / 2990 1480 / 1480 Output Total 475 / 925 Balance 170 / 1010 1055 / 2065 1480 / 1480 Weight last 48 hrs Weight 130 lb 7 oz Weight 127 lb Weight 127 lb 6 oz Physical Exam Narrative: GENERAL: Patient is alert NECK: No jugular vein distension. [] HEENT: No cyanosis. No icterus. No pallor. [] HEART: Irregular, S1 and S2. No murmur, rub or gallop. [] LUNGS: Clear to auscultate bilaterally. [] CENTRAL NERVOUS SYSTEM: Grossly nonfocal. [] EXTREMITIES: Lower extremities with 1+ edema bilaterally. Urinary Catheter Management: Bernal: Cath Placed During This Visit: yes Reason for Continuing Indwelling Catheter: Accurate Measurement of Urinary Output in Critically Ill Patients Urinary Catheter Date of Insertion: 11/28/23 Urinary Catheter Time of Insertion: 11:00 Data 12/02/23 02:38 12/02/23 04:23 Micro: Microbiology 11/28/23 10:56 Urine Culture - Preliminary Urine,Clean Catch Yeast species 11/28/23 11:55 Blood Culture - Preliminary Blood NEGATIVE TO DATE 11/28/23 10:56 Blood Culture - Preliminary Blood Staphylococcus species 11/29/23 09:15 Occult Blood (FIT) - Final Stool Routine Collection A&P Assessment and plan (1) Elevated troponin: (2) Hypertension: Qualifiers: Hypertension type: essential hypertension Qualified Code(s): I10 - Essential (primary) hypertension (3) GERD (gastroesophageal reflux disease): (4) Upper GI bleeding: Plan Patient has presented with altered mental status. Denying chest pain. Echo shows normal LV systolic function. She has significant valvular heart disease. Currently having black tarry stools. We will recommend GI workup. I had a detailed discussion with patient and family. Gave them all the options including continued medical therapy versus stress testing versus coronary angiogram. My recommendation will be to avoid invasive coronary angiogram given patient's frailty and possibility of GI bleed. They want to wait till GI workup is done. Then will decide. Continue aspirin. Continue heparin. Blood counts are staying stable. She is in atrial fibrillation. Can uptitrate metoprolol as needed. Thank you for involving us with care of this patient. We will continue to follow. Please call with questions. Consult Attestations Medical Necessity Statement: Care expected to cross 2 midnights. Coding Level of Care Code Acute Code for Chg Fwd Diagnoses Elevated troponin R79.89 Essential hypertension I10 Hypertension type: essential hypertension GERD (gastroesophageal reflux disease) K21.9 Upper GI bleeding K92.2
[2023-11-30] MEDS: iohexol 350 mg/mL 500 mL Btl (per mL) IV (14:55)
[2023-11-30] MEDS: pantoprazole 40 mg SDV IVP (15:20)
[2023-11-30 16:20] LABS: Basophils % 0.1 %; Lymphocytes % 9.9 %; Mean Corpuscular HGB Conc 28.5 g/dL (30-55); Mean Corpuscular Hemoglobin 27.6 pg (27-33); Mean Corpuscular Volume 96.7 fl (85-98); Mean Platelet Volume 11.6 fL (7.4-10.4); Monocytes % 9.7 %; Neutrophils # 8.11 10^3/uL (1.8-7.7); Neutrophils % 79.6 %; Nucleated Red Blood Cells % 0 %; Platelet Count 173 10^3/cmm (157-399); Red Blood Count 4.24 10^6/uL (3.85-5.65); White Blood Count 10.19 10^3/uL (3.29-11.43)
[2023-11-30 17:49] LABS: Troponin 5 6HR 136.5 ng/L (0-10); Troponin 5 6HR Delta 13.5 ng/L (0-12)
[2023-11-30 19:42] LABS: Partial Thromboplastin Time 100.9 SECONDS (23.9-36.7)
[2023-11-30] MEDS: trazodone 50 mg Tablet PO (21:36)
[2023-11-30 22:50] LABS: Basophils % 0.1 %; Hematocrit 33.6 % (36-47); Lymphocytes # 1.4 10^3/uL (0.8-4.8); Lymphocytes % 16.2 %; Mean Corpuscular HGB Conc 32.4 g/dL (30-55); Mean Corpuscular Hemoglobin 27.3 pg (27-33); Mean Corpuscular Volume 84.2 fl (85-98); Mean Platelet Volume 11.8 fL (7.4-10.4); Monocytes # 1.1 10^3/uL (0.2-0.9); Monocytes % 12.7 %; Neutrophils % 70.3 %; Nucleated Red Blood Cells % 0.2 %; Platelet Count 184 10^3/cmm (157-399); Red Blood Count 3.99 10^6/uL (3.85-5.65); Red Cell Distribution Width 15.9 % (12.1-15.1)
[2023-12-01] VITALS (43 sets, daily range): BP systolic 110–161; BP diastolic 77–109; PULSE 0–115; RESP 12–30; TEMP 36.2–36.7; O2SAT 91–100; BMI 23.2
[2023-12-01] MEDS: cefepime 1,000 MG in sodium chloride 0.9% (plus) 50 ML 100 MG IV ×2 (02:15→14:12)
--- NOTE | 2023-12-01 04:56 | PC.NURSE ---
physician notified of low urine output of 125 mls. no new orders at this time
[2023-12-01 06:03] LABS: Basophils % 0.1 %; Eosinophils % 0.2 %; Hematocrit 33.2 % (36-47); Lymphocytes % 20.5 %; Mean Corpuscular HGB Conc 32.8 g/dL (30-55); Mean Corpuscular Hemoglobin 27.9 pg (27-33); Mean Corpuscular Volume 85.1 fl (85-98); Mean Platelet Volume 12.3 fL (7.4-10.4); Monocytes % 10.1 %; Neutrophils # 6.82 10^3/uL (1.8-7.7); Neutrophils % 68.4 %; Nucleated Red Blood Cells % 0.2 %; Platelet Count 209 10^3/cmm (157-399); Red Cell Distribution Width 16.1 % (12.1-15.1); White Blood Count 9.97 10^3/uL (3.29-11.43)
--- NOTE | 2023-12-01 06:26 | P.HPUD_ITS ---
Surgery/Procedure H&P Update DATE OF PROCEDURE: December 01, 2023 DATE H&P PERFORMED: 11/30/23 H&P UPDATE INFORMATION: I have reviewed H&P completed within last 30 days, I have examined patient prior to procedure, No changes to prior documentation and H&P is in [facility] [place] EMR on date indicated PLANNED PROCEDURE: Operation Date: 12/01/23 08:00 Proposed Procedures p Esophagoscopy(Not Applicable) - Jose R Tripp MD
--- NOTE | 2023-12-01 07:49 | P.ANESASSM_ITS ---
Pre-Anesthetic Assessment Height/Weight: Height 1.55 m Weight 55.792 kg Temp Pulse Resp BP Pulse Ox O2 Del Method 98.0 F 101 H 20 H 119/88 94 Room Air 12/01/23 04:00 12/01/23 06:00 12/01/23 04:00 12/01/23 04:00 12/01/23 04:00 12/01/23 04:00 Preop Diagnosis: Incomplete uterovaginal prolapse, Urinary incontinence Operation Date: 12/01/23 08:00 Proposed Procedures p Esophagoscopy(Not Applicable) - Jose R Tripp MD Familial anesthetic complications: Trouble waking up Was Beta Di taken within 24 hours: N/A Last intake: Intake Last Liquid Date 10/12/19 Last Liquid Time 23:00 Last Solid Date 10/12/19 Last Solid Time 20:00 Social No alcohol and No tobacco Exam alert, oriented x 3, clear to auscultation bilaterally and regular rate & rhythm afib Airway Cervical ROM: within normal limits Mallampati: Class II Dentition: false Pulmonary None reported Remote Hx of bronchitis CV/HEM Atrial Fibrillation, Congestive Heart Failure and Hypertension CONCLUSIONS Normal left ventricular size and systolic function, EF 67%. No regional wall motion abnormalities. Moderate biatrial enlargement Moderately severe mitral valve regurgitation. Possibly severe tricuspid regurgitation. [id number] pulmonary valve regurgitation. Thickened aortic valve. Mild aortic valve regurgitation. Moderate pulmonary hypertension. Estimated pulmonary artery peak systolic pressure of 66 mm of Hg None reported Hepatic None reported GI Gastroesophageal Reflux Disease Metabolic None reported Musc/skel Lower Back Pain multiple myeloma Neuropsych None reported Anesthetic Plan ASA status: 3 Anesthesia: MAC Risk of > 500 ml blood loss (7ml/kg in children): No Medications/Allergies Home Medications Medication Instructions Recorded Confirmed Last Taken Type acetaminophen 500 mg tablet 1,000 mg PO PRN 10/05/19 11/28/23 10/07/19 14:00 History (Tylenol Extra Strength) aspirin 325 mg tablet 325 mg PO DAILY PRN UNKNOWN 10/05/19 11/28/23 1 Week Ago History ~10/01/19 calcium carbonate 600 mg calcium 600 mg PO QPM 10/05/19 11/28/23 11/27/23 History (1,500 mg) tablet cholecalciferol (vitamin D3) 25 1,000 unit PO QPM 10/05/19 11/28/23 11/27/23 History mcg (1,000 unit) capsule (Vitamin D3) nitroglycerin 0.4 mg sublingual 0.4 mg sublingual Q5M PRN Chest 10/05/19 11/28/23 Unknown History tablet (Nitrostat) Pain omeprazole magnesium 20 mg 20 mg PO DAILY 10/05/19 11/28/23 11/27/23 History capsule,delayed release calcitonin (salmon) 200 See Rx Instructions .Route .COMPLEX 08/24/20 11/28/23 11/27/23 History unit/actuation nasal spray oxycodone-acetaminophen 10 mg-325 1 tab PO Q4H PRN Pain 08/24/20 11/28/23 08/24/20 08:00 History mg tablet (Percocet) polyethylene glycol 3350 17 17 g PO DAILY PRN Constipation 08/24/20 11/28/23 Unknown History gram/dose oral powder (Miralax) apixaban 2.5 mg tablet (Eliquis) 2.5 mg PO BID 11/28/23 11/28/23 11/27/23 History atorvastatin 20 mg tablet 20 mg PO DAILY 11/28/23 11/28/23 11/27/23 History diphenoxylate-atropine 2.5 1 tab PO Q6H PRN diahrrea 11/28/23 11/28/23 Unknown History mg-0.025 mg tablet furosemide 40 mg tablet 40 mg PO QAM PRN Edema 11/28/23 11/28/23 Unknown History losartan 25 mg tablet 12.5 mg PO DAILY 11/28/23 11/28/23 Unknown History metoprolol tartrate 25 mg tablet 25 mg PO BID 11/28/23 11/28/23 11/27/23 History mirtazapine 7.5 mg tablet 7.5 mg PO BEDTIME 11/28/23 11/28/23 11/27/23 History potassium chloride 10 mEq 20 meq PO DAILY 11/28/23 11/28/23 Unknown History tablet,extended release trazodone 50 mg tablet 50 mg PO BEDTIME 11/28/23 11/28/23 11/27/23 History zinc gluconate 50 mg tablet 50 mg PO QPM 11/28/23 11/28/23 11/27/23 History Allergies Allergy/AdvReac Type Severity Reaction Status Date / Time clarithromycin Allergy Intermediate Hives Verified 11/28/23 10:19 Current Medications Generic Name Dose Route Start Last Admin Trade Name Jennifre PRN Reason Stop Dose Admin Aspirin 81 mg 11/28/23 18:10 11/30/23 08:43 Aspirin 81 Mg Ec Tablet PO 81 mg DAILY DINH Administration Atorvastatin Calcium 40 mg 11/29/23 09:00 11/30/23 08:43 Atorvastatin 40 Mg Tablet PO 40 mg DAILY DINH Administration Cefepime HCl 1,000 mg/ Sodium 50 mls @ 100 mls/hr 11/28/23 13:45 12/01/23 02:45 Chloride IV Infused Q12H DINH Infusion Protocol Heparin Sodium/Sodium Chloride 25,000 unit in 500 mls @ 0 mls/hr 11/30/23 10:00 12/01/23 00:45 Heparin Drip IV 0 unit/kg/hr .Q0M DINH 0 mls/hr Titration Protocol Per Protocol Sodium Chloride 1,000 mls @ 30 mls/hr 11/30/23 10:08 11/30/23 12:12 Sodium Chloride 0.9% IV 12/01/23 10:07 125 mls/hr .Q24H ONE Administration Metoprolol Tartrate 25 mg 11/29/23 21:19 11/30/23 17:13 Metoprolol Tartrate 25 Mg Tablet PO 25 mg BID DINH Administration Pantoprazole Sodium 40 mg 11/28/23 13:45 11/30/23 15:20 Pantoprazole 40 Mg Sdv IVP 40 mg Q24H DINH Administration Sucralfate 1 gm 11/29/23 17:00 12/01/23 06:25 Sucralfate 1 Gm Tablet PO Not Given AC&BEDTIME DINH Trazodone HCl 50 mg 11/28/23 21:00 11/30/23 21:36 Trazodone 50 Mg Tablet PO 50 mg BEDTIME DINH Administration PFSH Anesthesia Medical History GERD (gastroesophageal reflux disease) Heart disease Hyperlipidemia Hypertension Multiple myeloma Osteoporosis Surgical History History of vaginal surgery (10/13/19) Colpocleisis with uterus in place. Performed by Dr. Conde at [facility] [place]. S/P tonsillectomy and adenoidectomy Performed in [place], [place] S/P tubal ligation Performed at [facility] and [place], [place] Family History Mother Hypertension Hyperlipidemia Stroke Father Hypertension Sister Hypertension Diabetes Hyperlipidemia Unknown Heart disease Multiple family members Social History Smoking and tobacco/nicotine status: never used tobacco/nicotine Alcohol intake: never Substance/Drug Use: never Additional social history: Well balanced diet Data Anesthesia 12/01/23 05:45 11/30/23 08:50 Short CBC 11/29/23 11/29/23 11/30/23 Range/Units 15:39 21:25 08:50 WBC 11.14 12.60 H (3.29-11.43) 10^3/uL Hgb 11.90 12.20 11.40 (11.27-16.99) g/dL Hct 38.1 35.5 L (36-47) % MCV 88.2 86.4 (85-98) fl Plt Count 177 188 (157-399) 10^3/cmm Neut % (Auto) 80.2 78.0 % Neut # (Auto) 8.93 H 9.83 H (1.8-7.7) 10^3/uL 11/30/23 11/30/23 12/01/23 Range/Units 16:13 22:28 05:45 WBC 10.19 8.40 9.97 (3.29-11.43) 10^3/uL Hgb 11.70 10.90 L 10.90 L (11.27-16.99) g/dL Hct 41.0 33.6 L 33.2 L (36-47) % MCV 96.7 D 84.2 L D 85.1 (85-98) fl Plt Count 173 184 209 (157-399) 10^3/cmm Neut % (Auto) 79.6 70.3 68.4 % Neut # (Auto) 8.11 H 5.90 6.82 (1.8-7.7) 10^3/uL BMP 11/30/23 08:50 Sodium 135 L Potassium 3.6 Chloride 103 Carbon Dioxide 14 L BUN 13 Creatinine 0.8 Glucose 182 H Calcium 7.0 L Cardiac Enzymes 11/30/23 11/30/23 11/30/23 Range/Units 08:50 10:37 16:13 Troponin T Baseline 123 H* (0-10) ng/L Troponin T 120 Minute 137.0 H (0-10) ng/L Delta Troponin T 14.0 H* (0-10) ABS# Troponin T Hi Sens 6Hr 136.5 H (0-10) ng/L Troponin T Hi Sens 6Hr Delta 13.5 H* (0-12) ng/L Coags 11/30/23 18:43 APTT 100.9 H Microbiology 11/28/23 10:56 Urine Culture - Preliminary Urine,Clean Catch Yeast species Cardiac Studies: 2 Echocardiogram 11/29/23
[2023-12-01] MEDS: sodium chloride 0.9% 1,000 ML 30 ML IV (08:00)
--- NOTE | 2023-12-01 08:21 | P.PN_ITS ---
Subjective 2 Subjective: CTA reviewed. No ischemic bowel however b/l pleural effusions present. fluids were stopped yesterday still drowsy from anesthesia, seen after EGD. results pending. hb 10.9. 2 BM overnight BMP pending for today Says shes ok. on 2L NC at this time. Vitals/I&O/Wt Last Vital Signs Temp 97.4 F L 12/01/23 07:50 Pulse 105 H 12/01/23 07:50 Resp 18 12/01/23 07:50 BP 161/100 12/01/23 07:50 Pulse Ox 97 12/01/23 07:50 O2 Del Method Room Air 12/01/23 07:50 11/30/23 12/01/23 12/01/23 22:59 06:59 14:59 Intake Total 187.807 / 1667.807 104.375 / 1772.182 Output Total 150 / 150 125 / 275 Balance 37.807 / 1517.807 -20.625 / 1497.182 Weight last 48 hrs Weight 55.792 kg Weight 59.165 kg Physical Exam 2 Narrative: laying in bed, no acute distress on 2L NC , still drowsy from anesthesia, Normal S1-S2 Abdomen soft nontender Extremities unremarkable at this time Clear to auscultation bilaterally no wheezes no rhonchi Urinary Catheter Management: Bernal: Cath Placed During This Visit: yes Reason for Continuing Indwelling Catheter: Accurate Measurement of Urinary Output in Critically Ill Patients Urinary Catheter Date of Insertion: 11/28/23 Urinary Catheter Time of Insertion: 11:00 Data 12/01/23 05:45 11/30/23 08:50 Micro: Microbiology 11/28/23 10:56 Urine Culture - Preliminary Urine,Clean Catch Yeast species A&P Assessment and plan (1) Hypertension: Qualifiers: Hypertension type: essential hypertension Qualified Code(s): I10 - Essential (primary) hypertension (2) GERD (gastroesophageal reflux disease): (3) Incontinence of urine: Qualifiers: Urinary Incontinence type: urge incontinence Qualified Code(s): N39.41 - Urge incontinence (4) Altered mental status: (5) Elevated lactic acid level: (6) UTI (urinary tract infection): (7) NSTEMI (non-ST elevated myocardial infarction): Plan #Altered mental status?resolved patient back to baseline. #UTI #Metabolic encephalopathy most likely secondary to UTI # NSTEMI, most likely demand ischemia, however complicated by presence of GI bleed. #History of hypertension, hyperlipidemia #Elevated lactic acidosis?improved. #History of GERD #Incontinent of urine #Upper GI bleed, melanotic stool ? UA mildly suggestive of UTI. All other workup has been negative. CT chest abdomen pelvis reviewed. Distended gallbladder. ? Will check for gallbladder ultrasound ? Trend troponins. Baseline troponin 25. EKG nonischemic ? Serial EKGs ? 6-hour troponin 100. Delta troponin 48. ? Start heparin drip, placed on aspirin. Continue atorvastatin 40 daily ? N.p.o. at this time. Discussed with nursing staff to do bedside swallow evaluation before feeding patient when she is more awake ? We will check serial EKGs ? Check echo for wall motion abnormalities ? Patient is DNR/DNI as per family. ? Placed on cefepime1 g twice daily for UTI. Patient did receive Vanco and Zosyn in the ER. ? Check urine culture ? Check blood cultures -Check speech swallow evaluation ? Trend lactic acid. Initial one 6.1. Place patient on normal saline 125 cc/h. Patient weighs 57 kg ? Will repeat lactic acid in 3 hours. She did receive 1 L normal saline bolus in ER. -Give additional 500 cc normal saline bolus. -Admit to ICU at this time for further monitoring. Today's plan 12/01/2023 -[facility] pending this morning. ? Lactic acidosis improved with IV fluids but elevates again. CTA abdomen pelvis results reviewed. 1. Examination is degraded by motion artifact. 2. Findings of interstitial pancreatitis. No collections. 3. Over distended gallbladder. 4. Bilateral pleural effusions with reflux of contrast into the IVC suggestive of congestive heart failure. 5. Large hiatal hernia with no bowel obstruction. 6. Mild amount of free fluid pelvis. ? I have ordered a thiamine level. Patient may be thiamine deficient causing a lactic acidosis. ?High anion gap metabolic acidosis secondary to lactic acidosis. Unclear etiology at this time. - Lactic acid elevation probably 2/2 to NSTEMI? ? Patient to go for EGD today. - Results pending. ? Protonix 40 IV twice daily ? Sucralfate 1 g 4 times daily -Ruled in for NSTEMI ? Cardiology onboard. continue aspirin, heparin. heparin on hold since midnight. restart after EGD. ? Restart heparin gtt ? Patient will need cardiac angiogram versus stress test. Will have to see if patient is able to tolerate anticoagulation. ? Cardiology consulted. ? For A-fib she has been rate controlled with metoprolol 25 twice daily for now. ? Holding home Eliquis at this time ? Family understands the risks involved in patient's case. ?Speech swallow evaluation completed. Minced and moist diet ordered DNR/DNI DVT prophylaxis: SCDS Attestations 2 Medical Necessity Statement*: Patient requires greater than 2 midnight stay for management of altered mental status Diagnoses Essential hypertension I10 Hypertension type: essential hypertension GERD (gastroesophageal reflux disease) K21.9 Urge incontinence of urine N39.41 Urinary Incontinence type: urge incontinence Altered mental status R41.82 Elevated lactic acid level R79.89 UTI (urinary tract infection) N39.0 NSTEMI (non-ST elevated myocardial infarction) I21.4
--- NOTE | 2023-12-01 08:32 | P.MISC_ITS ---
Miscellaneous Note Purpose of Documentation: Update on patient care Note: Upper endoscopy done this morning. There was no evidence of mucosal pathology, no evidence of bleeding. Patient has a large hiatal hernia without signs of ischemia. ? Patient is cleared for medical therapy from the GI standpoint. ? In the clearance of recurrent GI bleeding we will have to discuss with the family the possibility of a colonoscopy, this will be considered a high risk pro cedure due to the patient age and frailty. ? Patient can continue on Protonix daily for next 2 weeks ? All other management per primary team.
--- NOTE | 2023-12-01 08:41 | PC.NURSE ---
Skin tear obtained when anesthesia performed jaw thrust. Skin tear is located at the left side of the neck. Tegaderm placed over skin tear by anesthesia. Will let the nurse on CSU know.
[2023-12-01] MEDS: pantoprazole 40 mg SDV IVP (14:12)
[2023-12-01 14:55] LABS: Anion Gap 14.7 (5-19); Blood Urea Nitrogen 21 mg/dL (8-23); Calcium 6.9 mg/dL (8.5-10.5); Carbon Dioxide 14 mmol/L (22-29); Chloride 107 mmol/L (98-107); Glucose 127 mg/dL (65-115); Osmolality Calculated 279 mOsm/kg (285-295); Potassium 3.7 mmol/L (3.5-5.1); Sodium 132 mmol/L (136-145)
[2023-12-01 14:56] LABS: Creatinine Clr Calc Pharmacy 29.0076
--- NOTE | 2023-12-01 15:23 | P.PN_ITS ---
Subjective 2 Subjective: Patient feeling well. Upper GI endoscopy did not reveal source of bleeding. Hemoglobin is stable. Vitals/I&O/Wt Last Vital Signs Temp 97.6 F 12/01/23 08:57 Pulse 100 12/01/23 11:41 Resp 12 12/01/23 08:57 BP 154/86 12/01/23 08:57 Pulse Ox 96 12/01/23 11:41 O2 Del Method Nasal Cannula 12/01/23 11:41 O2 Flow Rate 2 12/01/23 11:41 12/01/23 12/01/23 12/01/23 06:59 14:59 22:59 Intake Total 104.375 / 1772.182 550 / 550 Output Total 125 / 275 Balance -20.625 / 1497.182 550 / 550 Weight last 48 hrs Weight 123 lb Weight 130 lb 7 oz Physical Exam 2 Narrative: GENERAL: Patient is alert NECK: No jugular vein distension. [] HEENT: No cyanosis. No icterus. No pallor. [] HEART: Irregular, S1 and S2. No murmur, rub or gallop. [] LUNGS: Clear to auscultate bilaterally. [] CENTRAL NERVOUS SYSTEM: Grossly nonfocal. [] EXTREMITIES: Lower extremities with 1+ edema bilaterally. Urinary Catheter Management: Bernal: Cath Placed During This Visit: yes Reason for Continuing Indwelling Catheter: Accurate Measurement of Urinary Output in Critically Ill Patients Urinary Catheter Date of Insertion: 11/28/23 Urinary Catheter Time of Insertion: 11:00 Data 12/02/23 02:38 12/02/23 04:23 Micro: Microbiology 11/28/23 10:56 Urine Culture - Preliminary Urine,Clean Catch Yeast species A&P Assessment and plan (1) Elevated troponin: (2) Hypertension: Qualifiers: Hypertension type: essential hypertension Qualified Code(s): I10 - Essential (primary) hypertension (3) GERD (gastroesophageal reflux disease): (4) Upper GI bleeding: Plan After detailed discussion, patient and family have made decision to pursue medical therapy. Will continue aspirin. Uptitrate metoprolol to optimize blood pressure and heart rate. Thank you for involving us with care of this patient. We will continue to follow. Please call with questions. Attestations 2 Medical Necessity Statement*: Care expected to cross 2 midnights. Coding Level of Care Code Acute Code for Chg Fwd Diagnoses Elevated troponin R79.89 Essential hypertension I10 Hypertension type: essential hypertension GERD (gastroesophageal reflux disease) K21.9 Upper GI bleeding K92.2
[2023-12-01] MEDS: fluconazole premix 200 MG/100 ML PREMIX 100 MG IV (16:28)
--- NOTE | 2023-12-01 17:36 | XRR_ITS ---
PROCEDURE INFORMATION: Exam: XR Chest Exam date and time: 12/01/2023 5:58 PM Age: 87 years old Clinical indication: Device placement; Picc; Additional info: Post picc insertion TECHNIQUE: Imaging protocol: Radiologic exam of the chest. Views: 1 view. COMPARISON: CT chest abdpel w/*[id number] 11/28/2023 1:04 PM FINDINGS: Tubes, catheters and devices: Right PICC line tip overlies the mid to distal SVC level in appropriate positioning. Lungs: Increased mild to moderate hazy right perihilar opacity and increased density in the left retrocardiac lung base compared to 11/28/2023. Pleural spaces: Small left pleural effusion. Right pleural effusion has developed, partially imaged. No pneumothorax. Heart/Mediastinum: Borderline size. Mild pulmonary vascular congestion. Bones/joints: Wedge compression of T12/augmentation and wedge compression of L1 as well as mild dextroscoliosis and diffuse osteopenia again noted. XR/XR chest 1V portable [id number] IMPRESSION: 1. Status post PICC line placement. 2. Since 11/08/2023 radiograph; Increased left basilar atelectasis and pleural effusion. Trace new right effusion. Increased hazy right perihilar opacity due likely due to interstitial edema.
[2023-12-01] MEDS: sucralfate 1 gm Tablet PO ×2 (18:47→21:31)
[2023-12-01] MEDS: acetaminophen 325 mg Tablet 650 MG PO (18:47)
[2023-12-01] MEDS: metoprolol tartrate 50 mg Tablet PO (18:48)
--- NOTE | 2023-12-01 18:53 | PC.NURSE ---
Triple lumen PICC placed to right basilic vein. Referred to vascular access nurse for PICC placement due to poor peripheral access. Risks and benefits discussed with patient and patient daughter. Informed consent obtained from patient daughter. Right arm assessed with right basilic vein measuring 3.5 mm, straight, and apparent best choice for placement. Using sterile technique and MST, right basilic vein accessed x 1 stick. Trimmed cath 39 cm with 0 cm external length noted. CXR shows tip to be in what looks like SVC. Awaiting radiologist to read. Line secured with stat-lock. Insertion site covered with Biopatch and TSM. Report given to bedside nurse, Juan.
[2023-12-01] MEDS: trazodone 50 mg Tablet PO (21:30)
[2023-12-02] VITALS (7 sets, daily range): BP systolic 117–158; BP diastolic 68–100; PULSE 77–95; RESP 19–28; TEMP 36.5–36.9; O2SAT 95–100
[2023-12-02] MEDS: cefepime 1,000 MG in sodium chloride 0.9% (plus) 50 ML 100 MG IV ×2 (01:52→14:25)
[2023-12-02 03:17] LABS: Basophils % 0.2 %; Eosinophils # 0.1 10^3/uL (0.0-0.8); Eosinophils % 1.6 %; Hematocrit 30.4 % (36-47); Lymphocytes # 0.8 10^3/uL (0.8-4.8); Lymphocytes % 13.6 %; Mean Corpuscular HGB Conc 32.9 g/dL (30-55); Mean Corpuscular Hemoglobin 28.2 pg (27-33); Mean Corpuscular Volume 85.6 fl (85-98); Mean Platelet Volume 11.5 fL (7.4-10.4); Monocytes # 0.8 10^3/uL (0.2-0.9); Monocytes % 12.8 %; Neutrophils # 4.39 10^3/uL (1.8-7.7); Neutrophils % 71.3 %; Nucleated Red Blood Cells % 0.5 %; Platelet Count 160 10^3/cmm (157-399); Red Blood Count 3.55 10^6/uL (3.85-5.65); Red Cell Distribution Width 16.2 % (12.1-15.1); White Blood Count 6.16 10^3/uL (3.29-11.43)
[2023-12-02 05:03] LABS: Lactic Sepsis W/Reflex 1.5 mmol/L (0.5-2.2)
[2023-12-02 05:08] LABS: Anion Gap 14.5 (5-19); Blood Urea Nitrogen 22 mg/dL (8-23); Carbon Dioxide 14 mmol/L (22-29); Chloride 106 mmol/L (98-107); Creatinine Clr Calc Pharmacy 31.9084; Glucose 97 mg/dL (65-115); Magnesium 2.1 mg/dL (1.7-2.3); Osmolality Calculated 275 mOsm/kg (285-295); Potassium 3.5 mmol/L (3.5-5.1); Sodium 131 mmol/L (136-145)
[2023-12-02] MEDS: sucralfate 1 gm Tablet PO ×3 (06:25→21:35)
--- NOTE | 2023-12-02 07:43 | ANE.PACU2 ---
Inpatient post-anesthesia follow up: Airway intact: Yes Vital signs: Temperature 97.7 F Pulse Rate 90 Respiratory Rate 23 Blood Pressure 154/91 Pulse Oximetry 97 Oxygen Delivery Me thod [ Nasal Cannula Current Rate & Del adeola] Oxygen Delivery Me thod Nasal Cannula Oxygen Flow Rate [ Current Rate 2 & Delivery] Oxygen Flow Rate 2 Fraction of Inspir ed Oxygen Hydration adequate: Yes Nausea and vomiting: No Pain level: 1 Mental status: Baseline
--- NOTE | 2023-12-02 07:49 | P.PN_ITS ---
Subjective 2 Subjective: Patient is doing well. No chest pain Vitals/I&O/Wt Last Vital Signs Temp 97.7 F 12/01/23 20:00 Pulse 90 12/02/23 05:53 Resp 23 H 12/02/23 04:00 BP 154/91 12/02/23 04:00 Pulse Ox 97 12/02/23 04:00 O2 Del Method Nasal Cannula 12/02/23 04:00 O2 Flow Rate 2 12/02/23 04:00 12/01/23 12/02/23 12/02/23 22:59 06:59 14:59 Intake Total 580 / 1610 150 / 1760 Output Total 125 / 250 330 / 580 Balance 455 / 1360 -180 / 1180 Weight last 48 hrs Weight 131 lb 9.6 oz Weight 123 lb Physical Exam 2 Narrative: GENERAL: Patient is alert NECK: No jugular vein distension. [] HEENT: No cyanosis. No icterus. No pallor. [] HEART: Irregular, S1 and S2. No murmur, rub or gallop. [] LUNGS: Clear to auscultate bilaterally. [] CENTRAL NERVOUS SYSTEM: Grossly nonfocal. [] EXTREMITIES: Lower extremities with 1+ edema bilaterally. Urinary Catheter Management: Bernal: Cath Placed During This Visit: yes Reason for Continuing Indwelling Catheter: Accurate Measurement of Urinary Output in Critically Ill Patients Urinary Catheter Date of Insertion: 11/28/23 Urinary Catheter Time of Insertion: 11:00 Data 12/03/23 05:04 12/03/23 05:04 Micro: Microbiology 12/01/23 02:38 Blood Culture - Preliminary Blood SPECIMEN COLLECTED A&P Assessment and plan (1) Elevated troponin: (2) Hypertension: Qualifiers: Hypertension type: essential hypertension Qualified Code(s): I10 - Essential (primary) hypertension (3) GERD (gastroesophageal reflux disease): (4) Upper GI bleeding: Plan Patient is stable. Can be discharged home from cardiology standpoint. Please call with questions. Attestations 2 Medical Necessity Statement*: Care expected to cross 2 midnights. Coding Level of Care Code Acute Code for Chg Fwd Diagnoses Elevated troponin R79.89 Essential hypertension I10 Hypertension type: essential hypertension GERD (gastroesophageal reflux disease) K21.9 Upper GI bleeding K92.2
[2023-12-02] MEDS: atorvastatin 40 mg Tablet PO (08:58)
[2023-12-02] MEDS: metoprolol tartrate 50 mg Tablet PO ×2 (08:58→17:24)
[2023-12-02] MEDS: aspirin 81 mg EC Tablet PO (08:58)
[2023-12-02] MEDS: thiamine 100 mg Tablet PO (08:58)
[2023-12-02] MEDS: isosorbide mononitrate ER 30 mg Tablet PO (09:03)
[2023-12-02 09:34] LABS: Iron 16 ug/dL (37-145); Percent Saturation 7.4 % (20-50); Total Iron Binding Capacity 215 mcg/dl; Unsaturated Iron Binding 199 ug/dL (112-347)
--- NOTE | 2023-12-02 11:17 | PC.SOCIAL ---
IMM Updated Updated pt & family on IMM. No questions voiced. Provided pt a copy. Initialed, dated, & timed copy in chart.
[2023-12-02] MEDS: FUROsemide 10 mg/mL SDV 4mL 40 MG IVP (13:32)
[2023-12-02] MEDS: pantoprazole 40 mg SDV IVP (14:25)
[2023-12-02] MEDS: fluconazole premix 200 MG/100 ML PREMIX 100 MG IV (14:25)
--- NOTE | 2023-12-02 14:31 | P.PN_ITS ---
Subjective 2 Subjective: Hospital course, labs appreciated. Patient lying comfortably in bed. Seen with son at bedside. Patient complaining of occasional chest discomfort. Denies any nausea, vomiting, headache. Has remained hemodynamically stable and afebrile. Vitals/I&O/Wt Last Vital Signs Temp 97.7 F 12/02/23 08:15 Pulse 93 12/02/23 08:15 Resp 28 H 12/02/23 08:15 BP 158/100 12/02/23 08:15 Pulse Ox 99 12/02/23 08:15 O2 Del Method Room Air 12/02/23 08:15 O2 Flow Rate 2 12/02/23 08:15 12/01/23 12/02/23 12/02/23 22:59 06:59 14:59 Intake Total 580 / 1610 150 / 1760 100 / 100 Output Total 125 / 250 330 / 580 Balance 455 / 1360 -180 / 1180 100 / 100 Weight last 48 hrs Weight 59.693 kg Weight 55.792 kg Physical Exam 2 Narrative: General: No acute distress, AO x3, tired appearing, chronically sick appearing HEENT: PERRLA, pupils bilaterally equal and reactive Chest: Normal vesicular breath sounds, no added sounds, equal good air entry bilaterally CVS: S1-S2 regular, soft pansystolic murmur at apex radiating to axilla , No tachycardia, no gallops, no rubs Abdomen: Soft, nontender, no organomegaly, bowel sounds present Neuro: No focal deficits, no facial deformity, AO x3, power 5/5 in all limbs Urinary Catheter Management: Bernal: Cath Placed During This Visit: yes Reason for Continuing Indwelling Catheter: Accurate Measurement of Urinary Output in Critically Ill Patients Urinary Catheter Date of Insertion: 11/28/23 Urinary Catheter Time of Insertion: 11:00 Data 12/02/23 02:38 12/02/23 04:23 Micro: Microbiology 12/01/23 02:38 Blood Culture - Preliminary Blood SPECIMEN COLLECTED A&P Assessment and plan (1) NSTEMI (non-ST elevated myocardial infarction): (2) Hypertension: Qualifiers: Hypertension type: essential hypertension Qualified Code(s): I10 - Essential (primary) hypertension (3) Elevated lactic acid level: (4) UTI (urinary tract infection): (5) Melanotic stools: (6) Altered mental status: (7) GERD (gastroesophageal reflux disease): (8) Incontinence of urine: Qualifiers: Urinary Incontinence type: urge incontinence Qualified Code(s): N39.41 - Urge incontinence Plan # Elevated troponin # Possible non-ST elevation NE versus demand ischemia # Melanotic stool?concern for upper GI bleed. # Staphylococcus bacteremia # Altered mental status?resolved patient back to baseline. #UTI #Metabolic encephalopathy most likely secondary to UTI #Elevated lactic acidosis?improved. #History of GERD #Incontinent of urine # History of hypertension/hyperlipidemia As per the discussion between the mine administrator supervisor, surgeon and the hospitalist yesterday family had decided about medical management rather than aggressive management with procedures. Confirmed with patient's son at bedside. Continue with aspirin 81 mg daily, atorvastatin 40 mg daily, beta-tj with metoprolol 50 mg twice daily. Add isosorbide 30 mg oral daily. Goal blood pressure less than 140/90 mmHg. Will uptitrate antihypertensives accordingly. Oliguric since yesterday. Overall 7 L positive since admission. Currently on 2 L. Will plan for 40 mg of IV Lasix one-time. Monitor electrolytes. Patient's upper GI endoscopy appreciated. No concerns for active bleeding. Patient considered high risk for colonoscopy. Change Protonix to twice daily, Carafate before meals and at bedtime. Lactic acid has resolved. Renal function stable. Hemoglobin so far stable. Check iron panel, vitamin B12 and folate levels. Blood cultures from admission positive for Staphylococcus species. Identification not completed. Sensitivities not available. Repeat blood cultures from 11/30 so far negative. Check MRSA swab. Continue with IV cefepime every 12 hourly for now. Will await sensitivities before making definitive plan of treatment as an outpatient. Cannot rule out contamination. CODE STATUS: Discussed in detail with patient and patient's son. DNR/DNI. Appreciate speech evaluation. Advance diet to mechanical soft. SCDs for DVT prophylaxis Protonix will be sufficient for PUD prophylaxis Discharge plan: Patient remains hemodynamically stable and afebrile for next 24 hours will plan to discharge home with home health. PT evaluation. Attestations 2 Medical Necessity Statement*: Requires further hospitalization for management of non-ST elevation NE, upper GI bleed with concerns for altered mental status in setting of UTI, bacteremia while further goals of care discussions and safe discharge planning is sought Diagnoses NSTEMI (non-ST elevated myocardial infarction) I21.4 Essential hypertension I10 Hypertension type: essential hypertension Elevated lactic acid level R79.89 UTI (urinary tract infection) N39.0 Melanotic stools K92.1 Altered mental status R41.82 GERD (gastroesophageal reflux disease) K21.9 Urge incontinence of urine N39.41 Urinary Incontinence type: urge incontinence
[2023-12-02] MEDS: acetaminophen 325 mg Tablet 650 MG PO (14:53)
[2023-12-02 17:39] LABS: Add Urine Microscopic? NO; Charge for UA Resulting for Rev
[2023-12-02 17:49] LABS: Bilirubin Urine Neg (Negative); Blood Urine Neg (Negative); Glucose Urine UA Norm (Normal); Ketones Urine Negative (Negative); Leukocyte Esterase Urine Negative (Negative); Nitrate Urine Negative (Negative); Protein Urine Neg (Negative); Specific Gravity, Urine 1.005 (1.005-1.030); Urine Appearance Clear (CLEAR); Urine Color Light yellow (Yellow); Urobilinogen Urine Norm (Negative); pH Urine 5 (5-7)
[2023-12-02 19:42] LABS: Potassium, Radom Urine 18 mmol/L; Urine Random Chloride 109 mmol/L; Urine Random Sodium 78 mmol/L
[2023-12-02] MEDS: trazodone 50 mg Tablet PO (21:35)
[2023-12-03] VITALS (7 sets, daily range): BP systolic 149–155; BP diastolic 92–96; PULSE 85–96; RESP 22–29; TEMP 36.4–36.9; O2SAT 96–98; BMI 25.7
[2023-12-03] MEDS: acetaminophen 325 mg Tablet 650 MG PO (01:04)
[2023-12-03] MEDS: cefepime 1,000 MG in sodium chloride 0.9% (plus) 50 ML 100 MG IV (01:04)
[2023-12-03 05:13] LABS: Basophils % 0.2 %; Eosinophils # 0.2 10^3/uL (0.0-0.8); Eosinophils % 3.8 %; Hematocrit 29.8 % (36-47); Lymphocytes # 1.2 10^3/uL (0.8-4.8); Lymphocytes % 19.9 %; Mean Corpuscular HGB Conc 32.6 g/dL (30-55); Mean Corpuscular Volume 86.1 fl (85-98); Mean Platelet Volume 11.1 fL (7.4-10.4); Monocytes # 0.9 10^3/uL (0.2-0.9); Monocytes % 14.8 %; Neutrophils % 60.8 %; Nucleated Red Blood Cells % 0.5 %; Platelet Count 159 10^3/cmm (157-399); Red Blood Count 3.46 10^6/uL (3.85-5.65); Red Cell Distribution Width 16.3 % (12.1-15.1); White Blood Count 6.08 10^3/uL (3.29-11.43)
[2023-12-03 05:44] LABS: Chol HDL Ratio 4.26 mg/dL (0.0-4.40); Cholesterol 98 mg/dL (0-200); HDL Cholesterol 23 mg/dL (60-100); LDL Cholesterol Calculated 45 mg/dL (50-129); Triglycerides 151 mg/dL (0-150); VLDL Cholestrol Calculation 30 mg/dL (0-30)
[2023-12-03 05:51] LABS: Alanine Aminotransferase 55 U/L (0-33); Albumin Level 3.1 g/dL (3.5-5.2); Alkaline Phosphatase 62 U/L (35-105); Anion Gap 19.1 (5-19); Aspartate Amino Transferase 42 U/L (0-32); Blood Urea Nitrogen 22 mg/dL (8-23); Calcium 7.2 mg/dL (8.5-10.5); Carbon Dioxide 14 mmol/L (22-29); Chloride 101 mmol/L (98-107); Creatinine Clr Calc Pharmacy 32.8847; Globulin 2.4 g/dL (1.3-4.6); Glucose 97 mg/dL (65-115); Osmolality Calculated 275 mOsm/kg (285-295); Potassium 3.1 mmol/L (3.5-5.1); Sodium 131 mmol/L (136-145); Total Bilirubin 0.5 mg/dL (0.15-1.2); Total Protein 5.5 g/dL (6.6-8.7)
[2023-12-03] MEDS: sucralfate 1 gm Tablet PO ×2 (06:51→12:15)
[2023-12-03] MEDS: atorvastatin 40 mg Tablet PO (09:19)
[2023-12-03] MEDS: isosorbide mononitrate ER 30 mg Tablet PO (09:19)
[2023-12-03] MEDS: thiamine 100 mg Tablet PO (09:19)
[2023-12-03] MEDS: aspirin 81 mg EC Tablet PO (09:19)
[2023-12-03] MEDS: metoprolol tartrate 50 mg Tablet PO (09:19)
--- NOTE | 2023-12-03 09:31 | PC.NURSE ---
Bernal catheter was removed at 0920. Patient tolerated procedure well. Removed due to plan to discharge today.
--- NOTE | 2023-12-03 09:37 | P.DS_ITS ---
Discharge Providers Date of Admission: 11/28/23 12:41 Date of Discharge: December 03, 2023 Attending Provider at Admission: Gemma Crews MD Attending Provider at Discharge: Guicho Rothman MD Consults: Cardiology: Dr. Camacho Surgery: Dr. Ankush Díaz Primary Care Provider: Adriana Gramajo DO Diagnoses at Discharge Discharge Diagnosis (1) NSTEMI (non-ST elevated myocardial infarction): Status: Acute (2) Hypertension: Status: Acute Qualifiers: Hypertension type: essential hypertension Qualified Code(s): I10 - Essential (primary) hypertension (3) Elevated lactic acid level: Status: Acute (4) UTI (urinary tract infection): Status: Acute (5) Melanotic stools: Status: Acute (6) Altered mental status: Status: Acute (7) GERD (gastroesophageal reflux disease): Status: Acute (8) Incontinence of urine: Status: Acute Qualifiers: Urinary Incontinence type: urge incontinence Qualified Code(s): N39.41 - Urge incontinence Reason for Visit Reason for Visit: ams Brief History: History as per HPI: Patient is a 87-year-old female with a past medical history of dementia, hyperlipidemia, hypertension, heart disease, osteoporosis who presented to the hospital today for complaint of altered mental status. She was brought in by her daughter. The daughter states for the last few days the patient has been a little bit lethargic but yesterday was very very lethargic. This morning when she woke up she has not not been very very responsive. She will wake up and talk to you a little bit but then falls right back asleep. Patient is quite frail and has had no no fever. Daughter denies any nausea vomiting diarrhea abdominal pain, chest pain or any other complaints at this time. Daughter does state that in the past every time patient has a UTI she sort of behavior like this in the past she has had elevated lactic acid similar to this admission and this is sort of normal for her. She says every time she gets sick she would have an elevated lactic acid and it comes on eventually over the next day or 2. Does not complain of any chest pain or any other symptoms. Hospital Course Hospital Course Patient was initially admitted to the hospital with concerns of altered mental status which was thought to be due to metabolic encephalopathy secondary to UTI. She was started on broad-spectrum antibiotics along with IV fluids. On admission she was also found to have elevated troponins for which cardiology was consulted with concerns for non-ST elevation TN. She was found to have an elevated lactate which resolved with IV fluids though she was found to have metabolic acidosis. On review it seems patient has had history of metabolic acidosis which has been worked up before in the past as well. For non-ST elevation TN she was started on a heparin drip and echocardiogram was done. Being on heparin drip she developed melena for which surgery was consulted. She underwent endoscopy on 11/30 which showed a large hiatal hernia without obstruction or gangrene and no evidence of bleeding or mucosal abnormality. She was started on PPIs twice daily along with Carafate. Further goals of care discussion and treatment plan were discussed in detail with the patient and family at bedside. As per the discussions family opted for medical management given her frailty and advanced age for both cardiac stress test with or without cardiac angiogram along with possible need of colonoscopy. She was also found to have 1 out of 4 bottles positive for Staph capitis which is thought to be a contaminant. Repeat blood cultures were taken and have so far been negative. During hospitalization her hemoglobin remained stable. Patient has been back to her baseline mentation and hemodynamically stable over the last 2 to 3 days. She has been discharged home with home health on oral medications. She is to follow-up with the primary care provider and with cardiology on set appointments. Physical Exam Narrative: General: No acute distress, AO x3, tired appearing, chronically sick appearing HEENT: PERRLA, pupils bilaterally equal and reactive Chest: Normal vesicular breath sounds, no added sounds, equal good air entry bilaterally CVS: S1-S2 regular, soft pansystolic murmur at apex radiating to axilla , No tachycardia, no gallops, no rubs Abdomen: Soft, nontender, no organomegaly, bowel sounds present Neuro: No focal deficits, no facial deformity, AO x3, power 5/5 in all limbs Urinary Catheter Management: Bernal: Cath Placed During This Visit: yes Reason for Continuing Indwelling Catheter: Other Urinary Catheter Date of Insertion: 11/28/23 Urinary Catheter Time of Insertion: 11:00 Discharge Data Studies Completed and Pending Completed Studies During Hospitalization Category Date Time Status CT chest abdomen pelvis [CT chest abdpel w/*[id number] Cat Scan 11/28/23 12:10 Completed ] Stat CT head wo con* [id number] Stat Cat Scan 11/28/23 10:21 Completed CTA abdomen pelvis [CT angio abdomen pelvis [id number]] Stat Cat Scan 11/30/23 13:01 Completed CXRP [XR chest 1V portable [id number]] Routine Exams 12/01/23 17:36 Completed XR chest 1V portable [id number] Stat Exams 11/28/23 10:21 Completed CV. echo complete* [id number] Stat Ultrasound 11/29/23 17:55 Completed US gall bladder [id number] Stat Ultrasound 11/28/23 13:42 Completed Pending at discharge Category Date Time Status Blood Culture Stat Lab 11/28/23 10:56 Results Blood Culture Stat Lab 12/01/23 14:25 Results Folate Level AM LABS Lab 12/03/23 05:04 Received MAG [Magnesium] AM LABS Lab 12/04/23 04:00 Ordered MAG [Magnesium] AM LABS Lab 12/05/23 04:00 Ordered MRSA [Methicillin Resistant S.aureu] Routine Lab 12/02/23 20:25 Received Sputum Culture and Gram Stain Stat Lab 11/28/23 13:37 Uncollected Vitamin B1 (Thiamine),Blood Routine Lab 11/29/23 15:55 Received Radiology Impressions Abdomen/Pelvis CTA 11/30/23 13:01 IMPRESSION: 1. Examination is degraded by motion artifact. 2. Findings of interstitial pancreatitis. No collections. 3. Over distended gallbladder. 4. Bilateral pleural effusions with reflux of contrast into the IVC suggestive of congestive heart failure. 5. Large hiatal hernia with no bowel obstruction. 6. Mild amount of free fluid pelvis. Chest X-Ray 12/01/23 17:36 IMPRESSION: 1. Status post PICC line placement. 2. Since 11/08/2023 radiograph; Increased left basilar atelectasis and pleural effusion. Trace new right effusion. Increased hazy right perihilar opacity due likely due to interstitial edema. Echocardiogram: CONCLUSIONS Normal left ventricular size and systolic function, EF 67%. No regional wall motion abnormalities. Moderate biatrial enlargement Moderately severe mitral valve regurgitation. Possibly severe tricuspid regurgitation. [id number]-poynldde pulmonary valve regurgitation. Thickened aortic valve. Mild aortic valve regurgitation. Moderate pulmonary hypertension. Estimated pulmonary artery peak systolic pressure of 66 mm of Hg There is no pericardial effusion. There are no intracardiac masses. No similar previous studies are available for comparison. Laboratory Results WBC 6.08 10^3/uL (3.29-11.43) 12/03/23 05:04 RBC 3.46 10^6/uL (3.85-5.65) L 12/03/23 05:04 Hgb 9.70 g/dL (11.27-16.99) L 12/03/23 05:04 Hct 29.8 % (36-47) L 12/03/23 05:04 MCV 86.1 fl (85-98) 12/03/23 05:04 MCH 28.0 pg (27-33) 12/03/23 05:04 MCHC 32.6 g/dL (30-55) 12/03/23 05:04 RDW 16.3 % (12.1-15.1) H 12/03/23 05:04 Plt Count 159 10^3/cmm (157-399) 12/03/23 05:04 MPV 11.1 fL (7.4-10.4) H 12/03/23 05:04 Neut % (Auto) 60.8 % 12/03/23 05:04 Lymph % (Auto) 19.9 % 12/03/23 05:04 [place] % (Auto) 14.8 % 12/03/23 05:04 Eos % (Auto) 3.8 % 12/03/23 05:04 Baso % (Auto) 0.2 % 12/03/23 05:04 Neut # (Auto) 3.70 10^3/uL (1.8-7.7) 12/03/23 05:04 Lymph # (Auto) 1.2 10^3/uL (0.8-4.8) 12/03/23 05:04 [place] # (Auto) 0.9 10^3/uL (0.2-0.9) 12/03/23 05:04 Eos # (Auto) 0.2 10^3/uL (0.0-0.8) 12/03/23 05:04 Baso # (Auto) 0.0 10^3/uL (0.0-0.1) 12/03/23 05:04 Nucleated RBC % (auto) 0.5 % 12/03/23 05:04 Nucleated RBCs # 0.0 /100WBC 12/03/23 05:04 PT 19.70 SECONDS (12.1-14.9) H 11/28/23 10:56 INR 1.61 (0.8-1.2) H 11/28/23 10:56 APTT 100.9 SECONDS (23.9-36.7) H 11/30/23 18:43 Specimen Type Arterial 11/28/23 10:34 Sample Site Radial, right 11/28/23 10:34 ABG pH 7.51 (7.35-7.45) H 11/28/23 10:34 ABG pCO2 17.4 mmHg (35-45) L* 11/28/23 10:34 ABG pO2 97.9 mmHg (80.0-100.0) 11/28/23 10:34 ABG PO2/FiO2 Ratio 0 11/28/23 10:34 ABG HCO3 13.8 mmol/L (22-26) L 11/28/23 10:34 ABG Base Excess -6.4 mmol/L (-2.0-2.0) L 11/28/23 10:34 Emile Test Pos 11/28/23 10:34 Hematocrit 43.5 % (37-47) 11/28/23 10:34 O2 Delivery Device Room air 11/28/23 10:34 FiO2 21.0 % 11/28/23 10:34 University Registrar ID glc 11/28/23 10:34 Sodium 131 mmol/L (136-145) L 12/03/23 05:04 Potassium 3.1 mmol/L (3.5-5.1) L 12/03/23 05:04 Chloride 101 mmol/L (98-107) 12/03/23 05:04 Carbon Dioxide 14 mmol/L (22-29) L 12/03/23 05:04 Anion Gap 19.1 (5-19) H 12/03/23 05:04 BUN 22 mg/dL (8-23) 12/03/23 05:04 Creatinine 1.0 mg/dL (0.5-0.9) H 12/03/23 05:04 GFR Calculation Not Reportable 12/03/23 05:04 Glucose 97 mg/dL (65-115) 12/03/23 05:04 Estimat Average Glucose 103 11/28/23 10:56 Hemoglobin A1c 5.2 % (4.0-6.0) 11/28/23 10:56 Calculated Osmolality 275 mOsm/kg (285-295) L 12/03/23 05:04 Lactic Acid 1.5 mmol/L (0.5-2.2) 12/02/23 04:23 Lactic Acid (Sepsis) 4.8 mmol/L (0.5-2.2) H* 11/29/23 18:55 Calcium 7.2 mg/dL (8.5-10.5) L 12/03/23 05:04 Magnesium 2.0 mg/dL (1.7-2.3) 12/03/23 05:04 Iron 16 ug/dL (37-145) L 12/02/23 04:23 TIBC 215 mcg/dl 12/02/23 04:23 % Saturation 7.4 % (20-50) L 12/02/23 04:23 Unsat Iron Binding 199 ug/dL (112-347) 12/02/23 04:23 Total Bilirubin 0.5 mg/dL (0.15-1.2) 12/03/23 05:04 AST 42 U/L (0-32) H 12/03/23 05:04 ALT 55 U/L (0-33) H 12/03/23 05:04 Alkaline Phosphatase 62 U/L (35-105) 12/03/23 05:04 Ammonia 25 umol/L (11-51) 11/28/23 10:56 Creatine Kinase 32 U/L (26-192) 11/28/23 10:56 Troponin T Baseline 123 ng/L (0-10) H* 11/30/23 08:50 Troponin T 120 Minute 137.0 ng/L (0-10) H 11/30/23 10:37 Delta Troponin T 14.0 ABS# (0-10) H* 11/30/23 10:37 Troponin T Hi Sens 6Hr 136.5 ng/L (0-10) H 11/30/23 16:13 Troponin T Hi Sens 6Hr Delta 13.5 ng/L (0-12) H* 11/30/23 16:13 Total Protein 5.5 g/dL (6.6-8.7) L 12/03/23 05:04 Albumin 3.1 g/dL (3.5-5.2) L 12/03/23 05:04 Globulin 2.4 g/dL (1.3-4.6) 12/03/23 05:04 Triglycerides 151 mg/dL (0-150) H 12/03/23 05:04 Cholesterol 98 mg/dL (0-200) 12/03/23 05:04 LDL Cholesterol, Calc 45 mg/dL (50-129) L 12/03/23 05:04 Total VLDL Cholesterol 30 mg/dL (0-30) 12/03/23 05:04 HDL Cholesterol 23 mg/dL (60-100) L 12/03/23 05:04 Cholesterol/HDL Ratio 4.26 mg/dL (0.0-4.40) 12/03/23 05:04 Vitamin B12 318 pg/mL (232-1245) 11/28/23 10:56 Procalcitonin 0.22 ng/mL (0-0.5) 11/28/23 10:56 TSH 2.29 uIU/mL (0.27-4.20) 11/28/23 10:56 TSH 2.32 uIU/mL (0.27-4.20) 11/28/23 10:56 Urine Color Light yellow (Yellow) 12/02/23 17:16 Urine Appearance Clear (CLEAR) 12/02/23 17:16 Urine pH 5 (5-7) 12/02/23 17:16 Ur Specific [place] 1.005 (1.005-1.030) 12/02/23 17:16 Urine Protein Neg (Negative) 12/02/23 17:16 Urine Glucose (UA) Norm (Normal) 12/02/23 17:16 Urine Ketones Negative (Negative) 12/02/23 17:16 Urine Blood Neg (Negative) 12/02/23 17:16 Urine Nitrate Negative (Negative) 12/02/23 17:16 Urine Bilirubin Neg (Negative) 12/02/23 17:16 Urine Urobilinogen Norm mg/dL (Negative) 12/02/23 17:16 Ur Leukocyte Esterase Negative (Negative) 12/02/23 17:16 Urine RBC 0-4 /hpf (0-2) H 11/28/23 10:56 Urine WBC 15-25 /hpf (0-5) H 11/28/23 10:56 Ur Squamous Epith Cells 0-4 /hpf (0-5) H 11/28/23 10:56 Amorphous Sediment Not Reportable 11/28/23 10:56 Urine Bacteria Trace /hpf (NONE) 11/28/23 10:56 Urine Mucus 1+ /hpf 11/28/23 10:56 Urine Yeast 3+ /hpf H 11/28/23 10:56 Ur Random Sodium 78 mmol/L 12/02/23 17:16 Ur Random Potassium 18 mmol/L 12/02/23 17:16 Ur Random Chloride 109 mmol/L 12/02/23 17:16 Vitals Last Vital Signs Temp 98.4 F 12/03/23 08:13 Pulse 94 12/03/23 08:18 Resp 25 H 12/03/23 08:18 BP 153/92 12/03/23 08:18 Pulse Ox 97 12/03/23 08:18 O2 Del Method Room Air 12/03/23 08:13 O2 Flow Rate 2 12/02/23 08:15 Discharge Plan Discharge Patient Disposition: Home Health Service Condition: Stable Prescriptions: New sucralfate 1 gram Tablet 1 g PO AC&BEDTIME Qty: 90 0RF aspirin 81 mg Tablet,Delayed Release (Dr/Ec) 81 mg PO DAILY Qty: 30 0RF Protonix 40 mg tablet,delayed release (DR/EC) 40 mg PO BID 30 Days Qty: 60 0RF Rx Instructions: Twice daily for the next 4 weeks followed by once daily Continued calcium carbonate 600 mg calcium (1,500 mg) tablet 600 mg PO QPM cholecalciferol (vitamin D3) [Vitamin D3] 1,000 unit capsule 1,000 unit PO QPM nitroglycerin [Nitrostat] 0.4 mg tablet, sublingual 0.4 mg SUBLINGUAL Q5M PRN (Reason: Chest Pain) polyethylene glycol 3350 [Miralax] 17 gram/dose Powder 17 g PO DAILY PRN (Reason: Constipation) oxycodone-acetaminophen [Percocet] 10-325 mg Tablet 1 tab PO Q4H MDD 6 TABS PRN (Reason: Pain) calcitonin (salmon) 200 unit/actuation spray,non-aerosol See Rx Instructions .ROUTE .COMPLEX Rx Instructions: ONE SPRAY IN ONE NOSTRIL EVERYDAY ALTERNATING NOSTRILS furosemide 40 mg tablet 40 mg PO QAM PRN (Reason: Edema) zinc gluconate 50 mg Tablet 50 mg PO QPM trazodone 50 mg tablet 50 mg PO BEDTIME diphenoxylate-atropine 2.5-0.025 mg tablet 1 tab PO Q6H PRN (Reason: diahrrea) potassium chloride 10 mEq tablet extended release 20 meq PO DAILY mirtazapine 7.5 mg tablet 7.5 mg PO BEDTIME Changed atorvastatin 20 mg tablet 40 mg PO DAILY 30 Days Qty: 60 0RF metoprolol tartrate 25 mg tablet 50 mg PO BID Qty: 60 0RF Held Eliquis 2.5 mg tablet 2.5 mg PO BID Hold Instructions: Resume on 12/17/23. Discontinued aspirin 325 mg tablet 325 mg PO DAILY PRN (Reason: UNKNOWN) acetaminophen [Tylenol Extra Strength] 500 mg tablet 1,000 mg PO PRN omeprazole magnesium 20 mg capsule,delayed release(DR/EC) 20 mg PO DAILY losartan 25 mg tablet 12.5 mg PO DAILY Discharge Orders: Discharge Order (Routine); Ordered 12/03/23 Ordered By: Guicho Rothman Referrals: [facility] [Outside] Nydia Thorpe FNP [Nurse Practitioner] - 12/19/23 1:30 pm () Adriana Gramajo DO [Primary Care Provider] - 12/09/23 1:20 pm (This appointment will be with Dr. Preston. ) Discharge Diet: As Directed Discharge Activity: Resume usual activity and Increase activity as tolerated Patient Instructions: Sucralfate (By mouth) (Carafate), Aspirin (By mouth), Pantoprazole (By mouth) (Protonix), Urinary Tract Infection in Women (DC), Hypertension (DC), Altered Mental Status (ED), GI Discharge Instructions, Opioid Safety Activity Restrictions/Additional Instructions: Please check your blood pressures daily and maintain a blood pressure diary and follow-up with her primary care provider within next 1 week for further adjustment of antihypertensives. Continue with mechanical soft diet for next 1 week and then gradually advance to regular diet. Do not take Eliquis for the next 2 weeks. 1 week after starting Eliquis please recheck hemoglobin with your primary care provider. He should follow-up with Nydia Thorpe/nurse sagastume from cardiology within next 1 week. Discharge Attestations Time Spent in Discharge Care*: greater than 30 min Specific Discharge Activities: educating patient, educating and/or supporting family/caregiver, discussing with egg caser/social workers/dc planners, documenting/other paperwork and evaluating patient/reviewing data Status at Discharge: Cognitive status at discharge: mildly impaired cognition , Behavioral status at discharge: cooperative , Functional status at discharge: uses cane/walker , Overall status at discharge: patient is progressing back to baseline Quality Metrics Clinical Quality Measures [ No reported AMI, CVA or VTE this stay] Coding Level of Care Code 17841 Total time (in minutes) for Discharge: 60 Diagnoses NSTEMI (non-ST elevated myocardial infarction) I21.4 Essential hypertension I10 Hypertension type: essential hypertension Elevated lactic acid level R79.89 UTI (urinary tract infection) N39.0 Melanotic stools K92.1 Altered mental status R41.82 GERD (gastroesophageal reflux disease) K21.9 Urge incontinence of urine N39.41 Urinary Incontinence type: urge incontinence
[2023-12-03 09:43] LABS: Folate Level 3.3 ng/mL (4.8-37.3)
[2023-12-03] MEDS: potassium chloride ER 20 mEq Tablet 40 MEQ PO (12:15)
[2023-12-04 14:58] LABS: Methicillin-Resist S.aureu PCR NOT DETECTED (NOT DETECTED)
[2023-12-05 15:43] LABS: Vitamin B1 (Thiamine),Blood 98 nmol/L (78-185)
== END 2023-12-03 13:02 | disposition home health service (06) | DRG 70 ==
LOC: ER 10:43 → ICU 12:53 → MEDSURG 11-29 17:04 → ICU 11-30 11:43 → CSU 11-30 17:05
PROVIDERS: Internal Medicine; Surgery; Admitting Provider Internal Medicine; Emergency Provider Emergency Medicine; PCP Family Medicine; Visit Provider Student in an Organized Health Care Education/Training Program
PROC: 0DJ08ZZ Inspection of Upper Intestinal Tract, Via Natural or Artificial Opening Endoscopic (ICD-10-PCS; principal; 2023-12-01 08:00)
DX: G93.41 Metabolic encephalopathy (principal); I21.4 Non-ST elevation (NSTEMI) myocardial infarction; N39.0 Urinary tract infection, site not specified; E87.20 Acidosis, unspecified; K92.1 Melena; I11.0 Hypertensive heart disease with heart failure; I50.9 Heart failure, unspecified; E78.5 Hyperlipidemia, unspecified; K21.9 Gastro-esophageal reflux disease without esophagitis; K44.9 Diaphragmatic hernia without obstruction or gangrene; N39.41 Urge incontinence; Z66 Do not resuscitate; I48.91 Unspecified atrial fibrillation; I07.1 Rheumatic tricuspid insufficiency; I34.0 Nonrheumatic mitral (valve) insufficiency; I27.20 Pulmonary hypertension, unspecified; R79.9 Abnormal finding of blood chemistry, unspecified; Z79.82 Long term (current) use of aspirin; Z79.01 Long term (current) use of anticoagulants; F03.90 Unspecified dementia, unspecified severity, without behavioral disturbance, psychotic disturbance, mood disturbance, and anxiety
CPT/HCPCS: 36415; 36573; 36592; 36600; 43235; 51702; 70450; 71045; 71260; 74174; 74177; 76705; 80048; 80053; 80061; 81001; 81003; 82140; 82274; 82436; 82550; 82607; 82746; 82803; 83036; 83540; 83550; 83605; 83735; 84133; 84145; 84300; 84425; 84443; 84484; 85018; 85025; 85610; 85730; 87040; 87077; 87086; 87106; 87150; 87186; 87205; 87641; 92610; 93005; 93306; 94664; 96365; 96367; 96375; 96376; 97161; 99285; C1751; C9113; J0692; J1450; J1644; J1940; J2310; J2543; J2704; J3370; J3475; J7030; J7040; J7050; Q9967

== ENCOUNTER 2023-12-11 12:50 | Outpatient (CLI) | payer MEDICARE, OTHER, SELFPAY | END 2023-12-11 12:51 | disposition home or self-care (01) | LOC: LAB 12:52 | PROVIDERS: PCP Family Medicine; Visit Provider Internal Medicine Hematology & Oncology | DX: Z01.89 Encounter for other specified special examinations (principal) | CPT/HCPCS: 85018 ==

== ENCOUNTER 2023-12-16 11:29 | Outpatient (CLI) | payer MEDICARE, OTHER, SELFPAY ==
[2023-12-16 12:03] LABS: Basophils % 0.5 %; Eosinophils # 0.2 10^3/uL (0.0-0.8); Eosinophils % 2.4 %; Hematocrit 37.1 % (36-47); Lymphocytes # 1.3 10^3/uL (0.8-4.8); Lymphocytes % 21.1 %; Mean Corpuscular HGB Conc 31.5 g/dL (30-55); Mean Corpuscular Hemoglobin 26.4 pg (27-33); Mean Corpuscular Volume 83.6 fl (85-98); Mean Platelet Volume 10.9 fL (7.4-10.4); Monocytes # 0.6 10^3/uL (0.2-0.9); Neutrophils # 4.08 10^3/uL (1.8-7.7); Neutrophils % 65.7 %; Nucleated Red Blood Cells % 0 %; Platelet Count 232 10^3/cmm (157-399); Red Blood Count 4.44 10^6/uL (3.85-5.65); Red Cell Distribution Width 16.4 % (12.1-15.1); White Blood Count 6.21 10^3/uL (3.29-11.43)
[2023-12-16 15:47] LABS: Immunoglobulin IGG 309 mg/dL (700-1600); Immunoglobulin IGM 45 mg/dL (40-230)
[2023-12-16 23:53] LABS: Immunoglobulin IGA 1164 mg/dL (70-400)
[2023-12-17 10:13] LABS: Alanine Aminotransferase 18 U/L (0-33); Albumin Level 3.8 g/dL (3.5-5.2); Alkaline Phosphatase 59 U/L (35-105); Aspartate Amino Transferase 21 U/L (0-32); Blood Urea Nitrogen 8 mg/dL (8-23); Calcium 9.2 mg/dL (8.5-10.5); Carbon Dioxide 21 mmol/L (22-29); Chloride 99 mmol/L (98-107); Globulin 2.6 g/dL (1.3-4.6); Glucose 78 mg/dL (65-115); Osmolality Calculated 279 mOsm/kg (285-295); Sodium 136 mmol/L (136-145); Total Bilirubin 0.5 mg/dL (0.15-1.2); Total Protein 6.4 g/dL (6.6-8.7)
[2023-12-17 11:33] LABS: PROTEIN, TOTAL 6.3 g/dL (6.1-8.1)
[2023-12-17 11:49] LABS: KAPPA LIGHT CHAIN, FREE, SERUM 107.4 mg/L (3.3-19.4); KAPPA/LAMBDA LIGHT CHAINS FREE 14.71 (0.26-1.65); LAMBDA LIGHT CHAIN, FREE, SERU 7.3 mg/L (5.7-26.3)
[2023-12-19 13:00] LABS: ABNORMAL PROTEIN BAND 1 0.5 g/dL (NONE DETECTED); ABNORMAL PROTEIN BAND 2 0.7 g/dL (NONE DETECTED); ALBUMIN 3.2 g/dL (3.8-4.8); ALPHA 1 GLOBULIN 0.5 g/dL (0.2-0.3); ALPHA 2 GLOBULIN 0.8 g/dL (0.5-0.9); BETA 1 GLOBULIN 0.4 g/dL (0.4-0.6); BETA 2 GLOBULIN 0.6 g/dL (0.2-0.5); GAMMA GLOBULIN 0.8 g/dL (0.8-1.7)
== END 2023-12-16 11:30 | disposition home or self-care (01) ==
LOC: LAB 11:31
PROVIDERS: PCP Family Medicine; Visit Provider Internal Medicine Hematology & Oncology
DX: Z01.89 Encounter for other specified special examinations (principal)
CPT/HCPCS: 80053; 82784; 83883; 84155; 84165; 85025